=== PATIENT | male | born 1970 | race Caucasian/White ===

== ENCOUNTER 2016-09-13 08:37 | Inpatient (IN) | payer MEDICAID, OTHER ==
[2016-09-13 09:29] VITALS: BMI 38.0
--- NOTE | 2016-09-13 09:47 | ED PDOC ---
Arrival/HPI <Chaka Luis - Last Filed: 09/13/16 12:35> - General Historian: Patient - History of Present Illness Time/Duration: Other (3 days) Symptom Onset: Gradual Quality: Aching, Tightness Severity Level: 8 <Naomy Reyna - Last Filed: 09/13/16 18:55> - General Chief Complaint: Lower Extremity Problem/Injury Time Seen by Provider: 09/13/16 08:46 - History of Present Illness Narrative History of Present Illness (Text): 09/13/16 09:39 46yr old male with hx of chronic low back pain presents today with b/l posterior thigh pain that has been worsening over the past 3 days. pt states 3 days ago he fell down a flight of stairs and states he landed at the bottom on his back. pt states pain to the low back has been worsening and now the pain in the thigh has increased to the point where he is unable to hold his weight. pt denies bladder or bowel incontinence. denies numbness in the extremities. denies tingling. denies saddle parasthesias. denies fever/chills. denies urinary symptoms. no abdominal pain. pt eating and drinking well. no other complaints . (Naomy Reyna) Past Medical History - Provider Review Nursing Documentation Reviewed: Yes - Travel History Have you recently traveled outside [place] w/in the past 3 mons?: No - Endocrine/Metabolic Hx Diabetes Mellitus Type 2: Yes - Psychiatric Hx Substance Use: No <Naomy Reyna - Last Filed: 09/13/16 18:55> Family/Social History - Physician Review Nursing Documentation Reviewed: Yes Family/Social History: Unknown Family HX Smoking Status: Current Some Days Smoker Hx Alcohol Use: Yes Hx Substance Use: No <Naomy Reyna - Last Filed: 09/13/16 18:55> Allergies/Home Meds <Chaka Luis - Last Filed: 09/13/16 12:35> <Naomy Reyna - Last Filed: 09/13/16 18:55> Allergies/Adverse Reactions: Allergies No Known Allergies Allergy (Verified 09/13/16 09:49) Home Medications: Home Meds Medication Instructions Recorded Confirmed Aspirin [Adult Low Dose Aspirin EC] 09/13/16 Atorvastatin [Lipitor] 09/13/16 Enalapril Maleate [Vasotec] 09/13/16 Enalapril Maleate [Vasotec] 09/13/16 GlipiZIDE [Glucotrol] 09/13/16 Insulin Glargine,Hum.rec.anlog 32 units PO DAILY 09/13/16 09/13/16 [Lantus Solostar] MetFORMIN [glucoPHAGE] 1,000 mg PO DAILY 09/13/16 09/13/16 oxyCODONE [oxyCODONE Immediate 15 mg PO QID 09/13/16 09/13/16 Release Tab] Review of Systems - Review of Systems Constitutional: absent: Fatigue, Fevers Respiratory: absent: SOB, Cough Cardiovascular: absent: Chest Pain, Palpitations Gastrointestinal: absent: Abdominal Pain, Nausea, Vomiting Genitourinary Male: absent: Dysuria, Frequency, Hematuria, Urinary Output Changes Musculoskeletal: Arthralgias, Back Pain. absent: Neck Pain Skin: absent: Rash, Pruritis Neurological: absent: Headache, Dizziness Psychiatric: absent: Anxiety, Depression <Azoia,Naomy T - Last Filed: 09/13/16 18:55> Physical Exam Vital Signs Reviewed: Yes Temperature: Afebrile Blood Pressure: Normal Pulse: Regular Respiratory Rate: Normal Appearance: Positive for: Well-Appearing, Non-Toxic, Comfortable Pain Distress: None Mental Status: Positive for: Alert and Oriented X 3 - Systems Exam Head: Present: Atraumatic Mouth: Present: Moist Mucous Membranes Neck: Present: Normal Range of Motion Respiratory/Chest: Present: Clear to Auscultation, Good Air Exchange. No: Respiratory Distress, Accessory Muscle Use Cardiovascular: Present: Regular Rate and Rhythm, Normal S1, S2. No: Murmurs Abdomen: No: Tenderness, Distention, Peritoneal Signs, Rebound, Guarding Rectal: No: Occult Blood, Rectal Tenderness, Normal Rectal Tone (decreased rectal tone; tone present with bearing down.) Back: Present: Normal Inspection, Midline Tenderness (+ midline lumbar tenderness. no edema, no erythema; no ecchymosis; ), Paraspinal Tenderness Upper Extremity: Present: Normal Inspection, Normal ROM, Neurovascularly Intact Lower Extremity: Present: Normal Inspection, Normal ROM, Tenderness (+ ttp over posterior aspect of the thighs bilaterally; no edema, no erythema; no ecchymosis , sensation and distal pulses intact ), Neurovascularly Intact Neurological: Present: GCS=15, Speech Normal, Motor Func Grossly Intact (pt able to straight leg elevate both lower extremities. muscle strenght 5/5 equal bilaterally in lower extremity. ), Normal Sensory Function (sensation intact bilaterally; normal sensation to light touch bilaterally, normal sensation to pin prick bilaterally. ) Skin: Present: Warm, Dry Psychiatric: Present: Alert, Oriented x 3 <Naomy Reyna - Last Filed: 09/13/16 18:55> Vital Signs Temp Pulse Resp BP Pulse Ox 09/13/16 16:51 64 18 116/58 L 99 09/13/16 15:44 68 16 114/45 L 99 09/13/16 11:27 72 18 132/75 98 09/13/16 09:25 98.0 F 76 16 134/78 98 Medical Decision Making <Chaka Luis - Last Filed: 09/13/16 12:35> <Naomy Reyna - Last Filed: 09/13/16 18:55> ED Course and Treatment: 09/13/16 09:53 46yr old male with worsening leg pain and weakness s/p fall 3-4days ago. pt hx reviewed; pt takes oxycontin at home for chronic back pain. toradol and valium given. pt c/o weakness, although full rom of lower legs; will do MRI of LS spine as patient c/o weakness with midline low back pain s/p fall 3-4 days ago MRI lumbar spine; FINDINGS: Normal lumbar lordosis. There is a severe compression fracture of T12 with retropulsion of bone into the spinal canal. This compresses the proximal cauda equina. Findings are seen on axial image 4 series 8 and sagittal image 9. The retropulsed bone measures 9 mm anterior to posterior by 17 mm height by 25 mm with. There is marrow edema in the vertebral body consistent with an acute event. And underlying metastatic lesion cannot be excluded. Was there a history of recent trauma? Clinical correlation is suggested The remaining vertebral and disc levels are unremarkable OTHER FINDINGS: None. IMPRESSION: Severe compression fracture of T12 with retropulsion of bone into the spinal canal compressing the proximal cauda equina just below the tip of the conus. After MRI results; 10mg Decadron given IVP, call placed to neurosurgery. q1h neurochecks ordered. 09/13/16 11:[address] lofton; discussed case in depth regarding MRI findings of cauda equina; I discussed my physical findings of lack of rectal tone but good strength in lower legs bilaterally; He advised no intervention at this time; he advised close monitoring, frequent neuro checks; ; he would like thoracic MRI and thoracic CT. cbc wnl cmp wnl pt/ptt type and screen Cxr portable; wnl 09/13/16 12:[address] Daphne cristina; will get ICU consult. case discussed with dr. Cristina ICU physician. pt accepted to [facility] with [facility]. spoke with dr. pastrana; discussed the case of MRI findings of Cauda equina; he is going to discuss the case with dr. lofton. CT thoracic spine; FINDINGS: VERTEBRAE: There is a severe compression fracture of T12 with retropulsion of bone into the spinal canal producing severe encroachment upon the spinal canal and compression of the thecal sac and cauda equina. This is best seen on sagittal image 13 and axial image 101.. The remainder of the thoracic spine is unremarkable DISCS/SPINAL CANAL/NEURAL FORAMINA: Within the limits of the CT technique, no disc herniation seen. No central canal or neural foraminal stenosis.. PARASPINAL SOFT TISSUES: Unremarkable. OTHER FINDINGS: Unremarkable. IMPRESSION: There is a severe compression fracture of T12 with retropulsion of bone into the spinal canal producing severe encroachment upon the spinal canal and compression of the thecal sac and cauda equina. MRI thoracic spine; FINDINGS: ALIGNMENT: Normal thoracic spinal alignment. Normal thoracic kyphosis. VERTEBRA: There is a severe compression fracture of T12 with retropulsion of bone into the spinal canal compressing the proximal cauda equina. This was reported on the lumbar MRI from earlier today. There are no other vertebral compression fractures in the thoracic spine MARROW: Marrow edema in the T12 vertebral body consistent with acute compression fracture PARASPINAL SOFT TISSUES: Unremarkable. CORD: Unremarkable thoracic cord. No volume loss, signal abnormality or syrinx. DISCS: No disc herniation, spinal canal stenosis, or neuroforaminal narrowing. OTHER FINDINGS: None. IMPRESSION: There is a severe compression fracture of T12 with retropulsion of bone into the spinal canal compressing the proximal cauda equina. This was reported on the lumbar MRI from earlier today. There are no other vertebral compression fractures in the thoracic spine impression; thoracic compression fracture, cauda equina compression admit to ICU with neurosugery consult Pt reassessment; pt had the urge to urinate but was unable to; arnett catheter placed and 1100 cc of urine released; pt is still with strong muscle strength bilaterally; sensation intact in lower extremities. pt resting comfortably. 09/13/16 16:[address] Brown; discussed the case with him; advised him of my concern of possible urinary retention; He states he will touch base with dr. pastrana. 09/13/16 17:[address] pastrana (neurosugery) at bedside. (Naomy Reyna) - Lab Interpretations Lab Results: 09/13/16 11:35 09/13/16 11:35 Lab Results 09/13/16 15:09: Blood Type Confirm A NEGATIVE 09/13/16 11:35: WBC 11.3 H, RBC 3.80, Hgb 11.6 L, Hct 35.5 L, MCV 93.4, MCH 30.5 , MCHC 32.7, RDW 14.1, Plt Count 338, MPV 9.5, Gran % 56.7, Lymph % (Auto) 33.8 , Irwin % (Auto) 5.7, Eos % (Auto) 3.4, Baso % (Auto) 0.4, Gran # 6.42, Lymph # 3.8 H, Irwin # 0.6, Eos # 0.4, Baso # 0.04 09/13/16 11:35: Blood Type A NEGATIVE, Antibody Screen Negative, BBK History Checked No verified bt 09/13/16 11:35: Sodium 137, Potassium 3.6, Chloride 97 L, Carbon Dioxide 34 H, Anion Gap 10, BUN 15, Creatinine 0.6, Est GFR ( Amer) > 60, Est GFR (Non- Af Amer) > 60, Random Glucose 139 H, Calcium 8.8, Total Bilirubin 0.4, AST 33, ALT 36, Alkaline Phosphatase 101, Total Protein 6.8, Albumin 3.6, Globulin 3.2, Albumin/Globulin Ratio 1.1 09/13/16 11:35: PT 11.4, INR 1.06, APTT 28.7 - RAD Interpretation Radiology Orders: 09/13/16 09:49 SPINAL CANAL LUMBAR W/O CONT [MRI] Stat 09/13/16 11:33 CHEST PORTABLE [RAD] Stat 09/13/16 12:03 SPINAL CANAL THORACIC W/O CONT [MRI] Stat 09/13/16 12:05 THORACIC SPINE W/O CONT [CT] Stat - Medication Orders Current Medication Orders: Atorvastatin Calcium (Lipitor) 20 mg PO DAILY JOSIANE Dexamethasone (Decadron Inj) 4 mg IVP Q6H JOSIANE Last Admin: 09/13/16 17:10 Dose: 4 mg Enoxaparin Sodium (Lovenox) 40 mg SC DAILY JOSIANE PRN Reason: Protocol Last Admin: 09/13/16 15:44 Dose: 40 mg Sodium Chloride (Sodium Chloride 0.9%) 1,000 mls @ 125 mls/hr IV .Q8H JOSIANE Last Admin: 09/13/16 15:44 Dose: 125 mls/hr Insulin Human Lispro (Humalog Low) 0 units SC ACHS JOSIANE PRN Reason: Protocol Last Admin: 09/13/16 18:15 Dose: 1 units Ketorolac Tromethamine (Toradol) 60 mg IM Q8H PRN PRN Reason: moderate pain Stop: 09/18/16 14:28 Ondansetron HCl (Zofran Inj) 4 mg IVP Q6H PRN PRN Reason: Nausea/Vomiting Pantoprazole Sodium (Protonix Inj) 40 mg IVP DAILY JOSIANE Discontinued Medications Dexamethasone (Decadron Inj) 10 mg IVP STAT STA Stop: 09/13/16 11:27 Last Admin: 09/13/16 11:40 Dose: 10 mg Diazepam (Valium) 5 mg PO ONCE ONE Stop: 09/13/16 09:51 Last Admin: 09/13/16 10:03 Dose: 5 mg Glipizide (Glucotrol) 10 mg PO ACB JOSIANE Sodium Chloride (Sodium Chloride 0.9%) 1,000 mls @ 999 mls/hr IV .Q1H1M STA Stop: 09/13/16 13:08 Last Admin: 09/13/16 12:33 Dose: 999 mls/hr Insulin Human Regular (Humulin R Med) 0 units SC ACHS JOSIANE PRN Reason: Protocol Ketorolac Tromethamine (Toradol) 60 mg IM STAT STA Stop: 09/13/16 09:51 Last Admin: 09/13/16 10:03 Dose: 60 mg Re-Assess: WISAM Pain Assessment Document 09/13/16 11:03 HI (Rec: 09/13/16 15:45 HI [facility] [id number]) Pain Reassessment Is this a pain reassessment? Yes Sleep Is patient sleeping during reassessment? Yes - PA / REGULATORY COORDINATOR / Resident Statement MD/DO has reviewed & agrees with the documentation as recorded. MD/DO has examined the patient and agrees with the treatment plan. <Chaka Luis - Last Filed: 09/13/16 12:35> Disposition/Present on Arrival <Chkaa Luis - Last Filed: 09/13/16 12:35> - Present on Arrival Any Indicators Present on Arrival: Yes History of DVT/PE: No History of Uncontrolled Diabetes: Yes Urinary Catheter: No History of Decub. Ulcer: No History Surgical Site Infection Following: None - Disposition Have Diagnosis and Disposition been Completed?: Yes Disposition Time: 12:10 Patient Plan: Admission <Naomy Reyna - Last Filed: 09/13/16 18:55> - Disposition Diagnosis: Compression fracture, Cauda equina compression Disposition: HOSPITALIZED Patient Problems: Current Active Problems Problem Status Onset Cauda equina compression Acute Compression fracture Acute Condition: SERIOUS
--- NOTE | 2016-09-13 11:12 | MRI ---
PROCEDURE: MR LUMBAR SPINE WITHOUT CONTRAST HISTORY: back pain b/l leg weakness COMPARISON: None available. TECHNIQUE: Multiecho multiplanar sequences were performed through the lumbar spine without the use of intravenous contrast. FINDINGS: Normal lumbar lordosis. There is a severe compression fracture of T12 with retropulsion of bone into the spinal canal. This compresses the proximal cauda equina. Findings are seen on axial image 4 series 8 and sagittal image 9. The retropulsed bone measures 9 mm anterior to posterior by 17 mm height by 25 mm with. There is marrow edema in the vertebral body consistent with an acute event. And underlying metastatic lesion cannot be excluded. Was there a history of recent trauma? Clinical correlation is suggested The remaining vertebral and disc levels are unremarkable OTHER FINDINGS: None. IMPRESSION: Severe compression fracture of T12 with retropulsion of bone into the spinal canal compressing the proximal cauda equina just below the tip of the conus.
[2016-09-13 12:02] LABS: ADD MANUAL DIFF? NO
[2016-09-13] MEDS ORDERED: Sodium Chloride 0.9% 1,000 ML IV STA (12:08)
--- NOTE | 2016-09-13 12:16 | RAD ---
HISTORY: backpain COMPARISON: No prior. FINDINGS: LUNGS: No active pulmonary disease. PLEURA: No significant pleural effusion identified, no pneumothorax apparent. CARDIOVASCULAR: Normal. OSSEOUS STRUCTURES: No significant abnormalities. VISUALIZED UPPER ABDOMEN: Normal. OTHER FINDINGS: None. IMPRESSION: No active disease.
[2016-09-13 12:20] LABS: BLOOD UREA NITROGEN 15 mg/dL (7-21); CARBON DIOXIDE 34 mmol/L (21-33); CHLORIDE 97 mmol/L (98-107); GFR AFRICAN-AMERICAN > 60; GLUCOSE,RANDOM 139 mg/dL (70-110); POTASSIUM 3.6 mmol/L (3.6-5.0); SODIUM 137 mmol/L (132-148)
[2016-09-13 12:21] LABS: ALB/GLOB RATIO 1.1 (1.1-1.8); ALKALINE PHOSPHATASE 101 U/L (38-133); ALT/SGPT 36 U/L (7-56); AST/SGOT 33 U/L (15-59); BILIRUBIN,TOTAL 0.4 mg/dL (0.2-1.3); CALCIUM 8.8 mg/dL (8.4-10.5); TOTAL PROTEIN 6.8 g/dL (5.8-8.3)
[2016-09-13 12:28] LABS: BASO # 0.04 K/mm3 (0.0-2.0); BASO % 0.4 % (0.0-3.0); EOS # 0.4 (0.0-0.7); EOS % 3.4 % (1.5-5.0); GRAN # 6.42 (1.4-6.5); GRAN % 56.7 % (50.0-68.0); HEMATOCRIT 35.5 % (42.0-52.0); LYMPH # 3.8 (1.2-3.4); LYMPH % 33.8 % (22.0-35.0); MEAN CELL VOLUME 93.4 fL (80.0-105.0); MEAN CORPUSCULAR HEMOGLOBIN 30.5 pg (25.0-35.0); MEAN CORPUSCULAR HGB CONC 32.7 g/dl (31.0-37.0); MEAN PLATELET VOLUME 9.5 fl (7.0-11.0); MONO # 0.6 (0.1-0.6); MONO % 5.7 % (1.0-6.0); PLATELET COUNT 338 10^3/uL (120.0-450.0); RED CELL DISTRIBUTION WIDTH 14.1 % (11.5-14.5); WHITE BLOOD COUNT 11.3 10^3/ul (4.5-11.0)
[2016-09-13 12:33] LABS: INR 1.06 (0.93-1.08); PARTIAL THROMBOPLASTIN TIME 28.7 Seconds (23.7-30.8)
--- NOTE | 2016-09-13 14:09 | CT ---
PROCEDURE: CT Thoracic Spine without contrast HISTORY: fall COMPARISON: MRI of the lumbar spine performed on the same day TECHNIQUE: Axial computed tomography images were obtained of the thoracic spine without intravenous contrast. Coronal and sagittal reformatted images were created and reviewed. This CT exam was performed using one or more of the following dose reduction techniques: Automated exposure control, adjustment of the mA and/or kV according to patient size, and/or use of iterative reconstruction technique. FINDINGS: VERTEBRAE: There is a severe compression fracture of T12 with retropulsion of bone into the spinal canal producing severe encroachment upon the spinal canal and compression of the thecal sac and cauda equina. This is best seen on sagittal image 13 and axial image 101.. The remainder of the thoracic spine is unremarkable DISCS/SPINAL CANAL/NEURAL FORAMINA: Within the limits of the CT technique, no disc herniation seen. No central canal or neural foraminal stenosis.. PARASPINAL SOFT TISSUES: Unremarkable. OTHER FINDINGS: Unremarkable. IMPRESSION: There is a severe compression fracture of T12 with retropulsion of bone into the spinal canal producing severe encroachment upon the spinal canal and compression of the thecal sac and cauda equina.
[2016-09-13] MEDS ORDERED: Enoxaparin 40 mg Syringe SC SCH (14:30)
--- NOTE | 2016-09-13 15:36 | CP.PCM.CON ---
<Patricia Sanchez - Last Filed: 09/13/16 16:25> History of Present Illness - History of Present Illness History of Present Illness: This is a 46Y M with PMH of DM, HTN, HLD and substance abuse who came to ED for back pain x 4 days. Patient reports he was standing at the top of the stairs and slipped and fell backwards. He has been back pain every since. He says it is worse with standing and sitting, anything that increased pressure on the region. He denies numbness/tingling, weakness, loss of bowel or bladder function. The patient did admit to using heroin yesterday as well as smoking cocaine last night. Patient noted to be lethargic and falling asleep during interview. PMH: DM, HTN, HLD and substance abuse PSH: denies Home meds: ASA, Lipitor, Metformin, Glipizide, Enalipril, Oxycodone 15mg All: NKDA SH: denies alcohol use, smoker, + for cocaine and heroin use FH: DM Review of Systems - Constitutional Constitutional: absent: Chills, Fever - EENT Eyes: absent: Change in Vision Nose/Mouth/Throat: absent: Dysphagia, Sore Throat - Cardiovascular Cardiovascular: absent: Chest Pain, Diaphoresis, Dyspnea, Edema, Palpitations - Respiratory Respiratory: absent: Cough, Dyspnea - Gastrointestinal Gastrointestinal: absent: Abdominal Pain, Change in Bowel Habits, Nausea, Vomiting - Genitourinary Genitourinary: absent: Change in Urinary Stream, Dysuria, Hematuria, Pyuria, Urinary Incontinence, Urinary Hesitance, Urinary Urgency - Musculoskeletal Musculoskeletal: Back Pain. absent: Arthralgias, Numbness, Tingling - Integumentary Integumentary: absent: Change in Hair, Change in Pigmentation, Changing Lesions - Neurological Neurological: absent: Abnormal Movements, Confusion, Dizziness, Numbness, Paresthesias, Sensory Deficit, Tremor, Vertigo, Weakness - Psychiatric Psychiatric: absent: Anxiety, Depression Past Patient History - Past Social History Smoking Status: Current Some Days Smoker - CARDIAC Hx Hypercholesterolemia: Yes - ENDOCRINE/METABOLIC Hx Diabetes Mellitus Type 2: Yes - PSYCHIATRIC Hx Substance Use: No Meds Allergies/Adverse Reactions: Allergies Allergy/AdvReac Type Severity Reaction Status Date / Time No Known Allergies Allergy Verified 09/13/16 09:49 - Medications Medications: Current Medications Atorvastatin Calcium (Lipitor) 20 mg PO DAILY [facility] Enoxaparin Sodium (Lovenox) 40 mg SC DAILY [facility] PRN Reason: Protocol Sodium Chloride (Sodium Chloride 0.9%) 1,000 mls @ 125 mls/hr IV .Q8H [facility] Insulin Human Lispro (Humalog Low) 0 units SC ACHS JOSIANE PRN Reason: Protocol Ketorolac Tromethamine (Toradol) 60 mg IM Q8H PRN PRN Reason: moderate pain Stop: 09/18/16 14:28 Ondansetron HCl (Zofran Inj) 4 mg IVP Q6H PRN PRN Reason: Nausea/Vomiting Pantoprazole Sodium (Protonix Inj) 40 mg IVP DAILY [facility] Physical Exam - Constitutional Appears: No Acute Distress - Head Exam Head Exam: ATRAUMATIC, NORMAL INSPECTION, NORMOCEPHALIC - Eye Exam Eye Exam: Normal appearance, PERRL Pupil Exam: Mydriatic, NORMAL ACCOMODATION, PERRL - ENT Exam ENT Exam: Mucous Membranes Moist - Neck Exam Neck exam: Positive for: Normal Inspection - Respiratory Exam Respiratory Exam: Clear to Auscultation Bilateral, NORMAL BREATHING PATTERN. absent: Rales, Rhonchi, Wheezes - Cardiovascular Exam Cardiovascular Exam: REGULAR RHYTHM, +S1, +S2. absent: Tachycardia, Gallop, Rubs - GI/Abdominal Exam GI & Abdominal Exam: Normal Bowel Sounds, Soft. absent: Mass, Rebound, Rigid, Tenderness - Rectal Exam Additional comments: rectal exam in ED noted to have normal tone and sensation. - Extremities Exam Extremities exam: Positive for: normal inspection. Negative for: pedal edema - Back Exam Back exam: NORMAL INSPECTION, vertebral tenderness (low thoracic ) - Neurological Exam Neurological exam: Alert, CN II-XII Intact, Oriented x3 - Expanded Neurological Exam Expanded Patient oriented to: person, place, time Upper motor neuron: Babinski Sign: Normal Sensory exam: Lower Extremity 2 Point Discrimination: Normal, Lower Extremity Light Touch: Normal, Lower Extremity Pin Prick: Normal, Lower Extremity Temperature: Normal, Upper Extremity 2 Point Discrimination: Normal, Upper Extremity Light Touch: Normal, Upper Extremity Pin Prick: Normal, Upper Extremity Temperature: Normal Neuro motor strength exam: Left Upper Extremity: 5, Right Upper Extremity: 5, Left Lower Extremity: 5, Right Lower Extremity: 5 Coma Scale Eye Opening: SPONTANEOUS Coma Scale Motor Response: OBEYS COMMANDS Coma Scale Verbal: Oriented Coma Scale Total: 15 - Psychiatric Exam Psychiatric exam: Normal Affect, Normal Mood - Skin Skin Exam: Dry, Intact, Normal Color, Warm Results - Vital Signs Recent Vital Signs: Last Vital Signs Temp 98.0 F 09/13/16 09:25 Pulse 72 09/13/16 11:27 Resp 18 09/13/16 11:27 BP 132/75 09/13/16 11:27 Pulse Ox 98 09/13/16 11:27 - Labs Result Diagrams: 09/13/16 11:35 09/13/16 11:35 Labs: Laboratory Results - last 24 hr 09/13/16 09/13/16 09/13/16 11:35 11:35 11:35 WBC RBC Hgb Hct MCV MCH MCHC RDW Plt Count MPV Gran % Lymph % (Auto) [place] % (Auto) Eos % (Auto) Baso % (Auto) Gran # Lymph # Greenlee # Eos # Baso # PT 11.4 INR 1.06 APTT 28.7 Sodium 137 Potassium 3.6 Chloride 97 L Carbon Dioxide 34 H Anion Gap 10 BUN 15 Creatinine 0.6 Est GFR ( Amer) > 60 Est GFR (Non-Af Amer) > 60 Random Glucose 139 H Calcium 8.8 Total Bilirubin 0.4 AST 33 ALT 36 Alkaline Phosphatase 101 Total Protein 6.8 Albumin 3.6 Globulin 3.2 Albumin/Globulin Ratio 1.1 Blood Type A NEGATIVE Antibody Screen Negative BBK History Checked No verified bt 09/13/16 11:35 WBC 11.3 H RBC 3.80 Hgb 11.6 L Hct 35.5 L MCV 93.4 MCH 30.5 MCHC 32.7 RDW 14.1 Plt Count 338 MPV 9.5 Gran % 56.7 Lymph % (Auto) 33.8 [place]lee % (Auto) 5.7 Eos % (Auto) 3.4 Baso % (Auto) 0.4 Gran # 6.42 Lymph # 3.8 H Greenlee # 0.6 Eos # 0.4 Baso # 0.04 PT INR APTT Sodium Potassium Chloride Carbon Dioxide Anion Gap BUN Creatinine Est GFR ( Amer) Est GFR (Non-Af Amer) Random Glucose Calcium Total Bilirubin AST ALT Alkaline Phosphatase Total Protein Albumin Globulin Albumin/Globulin Ratio Blood Type Antibody Screen BBK History Checked Assessment & Plan - Assessment and Plan (Free Text) Assessment: This is a 46Y M with PMH of DM, HTN, HLD and substance abuse noted to have T12 compression with retropulsion of bone into spinal canal compression. Plan: Neuro: A&O x 3 Neurocheck q1h Neurosurgery consulted No neuro defecits seen at this time CT and MRI showed T12 compression fracture with spinal canal compression Substance abuse-heroin and cocaine UDS pending Decadron 4mg q6h Monitor for withdrawal CV: Hemodynamically stable Maintain MAP >65 Resp: Comfortable on room air Maintain spO2>90% GI: No symptoms at this time Zofran prn nausea Continue to monitor Renal: Continue to monitor CMP- will replace electrolytes as needed Ck mildly elevated NS@125 Heme: Hemoglobin stable Continue to monitor CBC ID: Afebrile, mild leukocytosis blood and urine culture pending HIV pending U/A and PCT pending Endo: BGM ACHS ISS Maintain euglycemia Psych: history of substance abuse Monitor for withdrawal GI ppx: Protonix DVT ppx: Lovenox Case seen, discussed and reviewed with attending. Janice Sanchez PGY1 - Date & Time Date: 09/13/16 Time: 16:14 <Eric NIÑO,Mario Elizalde - Last Filed: 09/13/16 17:24> Meds - Medications Medications: Current Medications Atorvastatin Calcium (Lipitor) 20 mg PO DAILY [facility] Dexamethasone (Decadron Inj) 4 mg IVP Q6H [facility] Last Admin: 09/13/16 17:10 Dose: 4 mg Enoxaparin Sodium (Lovenox) 40 mg SC DAILY [facility] PRN Reason: Protocol Last Admin: 09/13/16 15:44 Dose: 40 mg Sodium Chloride (Sodium Chloride 0.9%) 1,000 mls @ 125 mls/hr IV .Q8H [facility] Last Admin: 09/13/16 15:44 Dose: 125 mls/hr Insulin Human Lispro (Humalog Low) 0 units SC ACHS JOSIANE PRN Reason: Protocol Ketorolac Tromethamine (Toradol) 60 mg IM Q8H PRN PRN Reason: moderate pain Stop: 09/18/16 14:28 Ondansetron HCl (Zofran Inj) 4 mg IVP Q6H PRN PRN Reason: Nausea/Vomiting Pantoprazole Sodium (Protonix Inj) 40 mg IVP DAILY JOSIANE Results - Vital Signs Recent Vital Signs: Last Vital Signs Temp 98.0 F 09/13/16 09:25 Pulse 64 09/13/16 16:51 Resp 18 09/13/16 16:51 BP 116/58 L 09/13/16 16:51 Pulse Ox 99 09/13/16 16:51 - Labs Result Diagrams: 09/13/16 11:35 09/13/16 11:35 Labs: Laboratory Results - last 24 hr 09/13/16 09/13/16 15:35 16:27 Total Creatine Kinase 332 H CK-MB (CK-2) 10.5 H CK-MB (CK-2) % 3.2 H Urine Color Yellow Urine Appearance Clear Urine pH 7.0 Ur Specific [place] 1.015 Urine Protein Negative Urine Glucose (UA) Negative Urine Ketones Negative Urine Blood Negative Urine Nitrate Negative Urine Bilirubin Negative Urine Urobilinogen 1.0 H Ur Leukocyte Esterase Negative Attending/Attestation - Attestation I have personally seen and examined this patient.: Yes I have fully participated in the care of the patient.: Yes I have reviewed all pertinent clinical information: Yes Notes (Text): 09/13/16 17:22 46 y/o M s/p Trauma after fall downstairs Presented w/ Acute back pain x 4 days. Found to have t12 disk protrusion in to spinal canal w/ moderate cord impingement. Does have poor rectal tone, and difficulty urinating and standing/ bearing weight. ER staff and ICU staff spoke to neurosurgery to alert them of the findings, plan to continue decadron overnight and decompress in the a.m. Neurochecks q 1hrs. Blood cx. Watch for withdrawl from polysubstance abuse. heroin, cocaine. etc dvt p heparin sq cc time 65 min
[2016-09-13] MEDS: Sodium Chloride 0.9% 1,000 ML IV SCH (15:44)
--- NOTE | 2016-09-13 15:45 | MRI ---
PROCEDURE: MR THORACIC SPINE WITHOUT CONTRAST HISTORY: fall COMPARISON: MRI of the lumbar spine earlier same day TECHNIQUE: Multiecho multiplanar sequences were performed through the thoracic spine without the use of intravenous contrast. FINDINGS: ALIGNMENT: Normal thoracic spinal alignment. Normal thoracic kyphosis. VERTEBRA: There is a severe compression fracture of T12 with retropulsion of bone into the spinal canal compressing the proximal cauda equina. This was reported on the lumbar MRI from earlier today. There are no other vertebral compression fractures in the thoracic spine MARROW: Marrow edema in the T12 vertebral body consistent with acute compression fracture PARASPINAL SOFT TISSUES: Unremarkable. CORD: Unremarkable thoracic cord. No volume loss, signal abnormality or syrinx. DISCS: No disc herniation, spinal canal stenosis, or neuroforaminal narrowing. OTHER FINDINGS: None. IMPRESSION: There is a severe compression fracture of T12 with retropulsion of bone into the spinal canal compressing the proximal cauda equina. This was reported on the lumbar MRI from earlier today. There are no other vertebral compression fractures in the thoracic spine
[2016-09-13] MEDS ORDERED: Insulin Reg-MEDIUM-Coverage SC SCH (16:30)
--- NOTE | 2016-09-13 16:37 | CP.PCM.HP ---
<Ian Chan - Last Filed: 09/13/16 16:26> History of Present Illness - History of Present Illness History of Present Illness: This is a 46 y/o male with hx of DM and apparent substance abuse. The patient presents with complaints of bilateral lower extremity weakness and pain as well as lower back discomfort. The patient states that 3 days ago he fell while walking down stairs. He reports falling to the floor on his sacrum. He states he was sore after this event but was not experiencing weakness. Over the past few days his pain progress and the patient developed b/l lower extremity weakness. As of today the patient notes he is unable to stand or walk for prolonged periods due to his "legs giving out". MRI in the ED reveals T12 fracture with compression of the cauda equina. Neurosurgery was contacted who recommend conservative therapy for now as well as additional imaging of the spine. The patient denies loss of bowel or bladder dysfunction. He denies saddle anesthesia or any sensory deficits. On evaluation the patient was found to be lethargic requiring repeated prompting to answer questions. He admits to usin Oxycontin which is prescribed to him for reasons that are not clear. He further admits to Heroin use but denies IV administration. In addition he admits to smoking cocaine prior to arrival. PMH: IDDM, polysubstance abuse PSH: denies FHX; noncontributory Social history: Unemployed. Apparent unstable living situation. Substance abuse as described above. Denies alcohol use. Reports 1ppd x >10 years cigarette use. Allergies: NKDA Present on Admission - Present on Admission Any Indicators Present on Admission: No Review of Systems - Constitutional Constitutional: absent: Chills, Fever - EENT Eyes: absent: Blurred Vision, Change in Vision Nose/Mouth/Throat: absent: Nasal Congestion, Nasal Discharge, Sore Throat - Cardiovascular Cardiovascular: absent: Chest Pain, Dyspnea, Palpitations, Syncope - Respiratory Respiratory: absent: Cough, Dyspnea - Gastrointestinal Gastrointestinal: absent: Abdominal Pain, Diarrhea, Nausea, Vomiting - Genitourinary Genitourinary: absent: Dysuria, Hematuria - Musculoskeletal Musculoskeletal: Back Pain, Muscle Weakness. absent: Neck Pain - Neurological Neurological: Radicular Pain, Weakness. absent: Dizziness, Numbness, Focal Weakness, Headaches, Syncope - Psychiatric Psychiatric: absent: Anxiety, Depression - Endocrine Endocrine: absent: Fatigue, Palpitations Past Patient History - Past Social History Smoking Status: Current Some Days Smoker - CARDIAC Hx Hypercholesterolemia: Yes - ENDOCRINE/METABOLIC Hx Diabetes Mellitus Type 2: Yes - PSYCHIATRIC Hx Substance Use: No Meds Allergies/Adverse Reactions: Allergies Allergy/AdvReac Type Severity Reaction Status Date / Time No Known Allergies Allergy Verified 09/13/16 09:49 Physical Exam - Constitutional Appears: Non-toxic - Head Exam Head Exam: ATRAUMATIC, NORMOCEPHALIC - Eye Exam Eye Exam: EOMI, Normal appearance. absent: PERRL (constricted ) - ENT Exam ENT Exam: Mucous Membranes Moist - Neck Exam Neck exam: Positive for: Full Rom, Normal Inspection - Respiratory Exam Respiratory Exam: Clear to Auscultation Bilateral. absent: Rales, Rhonchi, Wheezes - Cardiovascular Exam Cardiovascular Exam: REGULAR RHYTHM, +S1, +S2 - GI/Abdominal Exam GI & Abdominal Exam: Normal Bowel Sounds, Soft. absent: Distended - Extremities Exam Extremities exam: Positive for: full ROM, normal inspection, pedal pulses present. Negative for: calf tenderness, pedal edema - Neurological Exam Neurological exam: Alert, Oriented x3 Additional comments: no focal deficits. normal sensory exam to b/l lower extremities and inguinal area. 5/5 muscle strength to all extremities. - Psychiatric Exam Psychiatric exam: Normal Affect, Normal Mood - Skin Skin Exam: Normal Color, Warm Results - Vital Signs Recent Vital Signs: Last Vital Signs Temp 98.0 F 09/13/16 09:25 Pulse 68 09/13/16 15:44 Resp 16 09/13/16 15:44 BP 114/45 L 09/13/16 15:44 Pulse Ox 99 09/13/16 15:44 - Labs Result Diagrams: 09/13/16 11:35 09/13/16 11:35 Labs: Laboratory Results - last 24 hr 09/13/16 15:35 Total Creatine Kinase 332 H CK-MB (CK-2) 10.5 H CK-MB (CK-2) % 3.2 H Assessment & Plan - Assessment and Plan (Free Text) Assessment: 46 y/o male with hx IDDM presenting s/p fall with a fracture to T12 vertebrae and compression of cauda equina. Patient is not experiencing saddle anesthesia, bowel or bladder incontinence. Neurosurgery is aware of the case and recommends non-surgical treatment at this time with further imaging of the spine. T12 fracture w/ cauda equina compression - neurochecks q4h - Toradol for pain - neurosurgery following - CT and MRI thoracic spine pending Hx substance abuse - urine tox - rapid HIV due to possible IVDA DM - SSI - low - holding home PO meds while inpatient - diabetic diet - fingerstick ACHS PPX - lovenox 40mg daily - Protonix 40mg daily <Daphne Reyes B - Last Filed: 09/15/16 18:12> Results - Vital Signs Recent Vital Signs: Last Vital Signs Temp 98.7 F 09/15/16 17:31 Pulse 65 09/15/16 17:20 Resp 14 09/15/16 17:20 BP 109/52 L 09/15/16 14:54 Pulse Ox 100 09/15/16 14:00 - Labs Result Diagrams: 09/15/16 06:45 09/15/16 06:45 Labs: Laboratory Results - last 24 hr 09/13/16 09/14/16 09/14/16 17:02 07:51 11:18 WBC RBC Hgb Hct MCV MCH MCHC RDW Plt Count MPV Sodium Potassium Chloride Carbon Dioxide Anion Gap BUN Creatinine Est GFR ( Amer) Est GFR (Non-Af Amer) POC Glucose (mg/dL) 177 H 164 H 168 H Random Glucose Calcium Total Bilirubin AST ALT Alkaline Phosphatase Total Protein Albumin Globulin Albumin/Globulin Ratio Procalcitonin 09/14/16 09/15/16 09/15/16 22:45 06:30 06:45 WBC 12.3 H RBC 3.66 Hgb 10.9 L Hct 33.7 L MCV 92.1 MCH 29.8 MCHC 32.3 RDW 14.0 Plt Count 241 MPV 10.0 Sodium Potassium Chloride Carbon Dioxide Anion Gap BUN Creatinine Est GFR ( Amer) Est GFR (Non-Af Amer) POC Glucose (mg/dL) 236 H Random Glucose Calcium Total Bilirubin AST ALT Alkaline Phosphatase Total Protein Albumin Globulin Albumin/Globulin Ratio Procalcitonin 0.06 L 09/15/16 06:45 WBC RBC Hgb Hct MCV MCH MCHC RDW Plt Count MPV Sodium 139 Potassium 3.7 Chloride 107 Carbon Dioxide 25 Anion Gap 11 BUN 20 Creatinine 0.6 Est GFR ( Amer) > 60 Est GFR (Non-Af Amer) > 60 POC Glucose (mg/dL) Random Glucose 171 H Calcium 7.8 L Total Bilirubin 0.6 AST 63 H ALT 45 Alkaline Phosphatase 100 Total Protein 5.4 L Albumin 2.8 L Globulin 2.6 Albumin/Globulin Ratio 1.1 Procalcitonin Attending/Attestation - Attestation I have personally seen and examined this patient.: Yes I have fully participated in the care of the patient.: Yes I have reviewed all pertinent clinical information: Yes Notes (Text): I have seen and examined patient at bedside. Agree with the above note with the following additions/ exceptions: Briefly this is 46 year old male with history of IDDM, tobacco use, substance abuse, opioid use who got admitted for evaluation for lower back pain and lower extremity weakness secondary to fall. MRI revealed T12 fracture with compression of the cauda equina. Neurosurgery recommended additional imaging of the spine. The patient denies loss of bowel or bladder incontinence, saddle anesthesia, sexual dysfunction or any sensory deficits however there is a decrease rectal tone. Patient will be admitted to ICU. Will check ESR, CRP and cultures. Will give decadron. Will do frequent neurochecks. Upon discharge will follow up with PMD of choice. Dr Daphne Reyes
[2016-09-13 16:45] LABS: URINE BILIRUBIN NEGATIVE (NEGATIVE); URINE BLOOD NEGATIVE (NEGATIVE); URINE GLUCOSE (UA) NEGATIVE (NEGATIVE); URINE KETONE NEGATIVE (NEGATIVE); URINE LEUKOCYTE ESTERASE NEGATIVE Leu/uL (NEGATIVE); URINE PROTEIN NEGATIVE mg/dL (<30 mg/dL)
[2016-09-13 16:48] LABS: URINE APPEARANCE CLEAR (CLEAR); URINE COLOR YELLOW (YELLOW)
[2016-09-13] MEDS: Dexamethasone 4 mg/1 ml IVP SCH ×2 (17:10→22:40)
[2016-09-13] MEDS: Insulin Lispro (humaLOG) LOW Coverage SC SCH ×2 (18:15→22:02)
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
[2016-09-14] MEDS ORDERED: Morphine 2 mg/ml ISec IVP ONE (02:36)
[2016-09-14] MEDS: Sodium Chloride 0.9% 1,000 ML IV SCH ×3 (02:48→15:57)
[2016-09-14] MEDS: Dexamethasone 4 mg/1 ml IVP SCH ×4 (05:14→21:32)
[2016-09-14] MEDS: Insulin Lispro (humaLOG) LOW Coverage SC SCH ×4 (08:30→22:00)
--- NOTE | 2016-09-14 08:57 | CP.PCM.PN ---
<RocioIan - Last Filed: 09/14/16 14:24> Subjective - Date & Time of Evaluation Date of Evaluation: 09/14/16 Time of Evaluation: 08:50 - Subjective Subjective: Patient seen at bedside. Neurologic status is unchanged. He has not experienced loss of bowel or bladder function. Patient was seen by neurosurgery and will undergo internal fixation likely today. Objective - Vital Signs/Intake and Output Vital Signs (last 24 hours): Temp Pulse Resp BP Pulse Ox 98.1 F 70 27 H 141/84 96 09/14/16 04:00 09/14/16 07:50 09/14/16 07:50 09/14/16 07:00 09/14/16 07:50 Intake and Output: 09/14/16 09/14/16 06:59 18:59 Intake Total 1500 Output Total 850 Balance 650 - Medications Medications: Current Medications Atorvastatin Calcium (Lipitor) 20 mg PO DAILY [facility] Dexamethasone (Decadron Inj) 4 mg IVP Q6H [facility] Last Admin: 09/14/16 05:14 Dose: 4 mg Enoxaparin Sodium (Lovenox) 40 mg SC DAILY [facility] PRN Reason: Protocol Last Admin: 09/13/16 15:44 Dose: 40 mg Sodium Chloride (Sodium Chloride 0.9%) 1,000 mls @ 125 mls/hr IV .Q8H [facility] Last Admin: 09/14/16 02:48 Dose: 125 mls/hr Insulin Human Lispro (Humalog Low) 0 units SC ACHS [facility] PRN Reason: Protocol Last Admin: 09/14/16 08:30 Dose: Not Given Ketorolac Tromethamine (Toradol) 60 mg IM Q8H PRN PRN Reason: moderate pain Stop: 09/18/16 14:28 Last Admin: 09/14/16 05:17 Dose: 60 mg Ondansetron HCl (Zofran Inj) 4 mg IVP Q6H PRN PRN Reason: Nausea/Vomiting Pantoprazole Sodium (Protonix Inj) 40 mg IVP DAILY [facility] - Labs Labs: PT 11.4 Seconds (9.9-11.8) 09/13/16 11:35 INR 1.06 (0.93-1.08) 09/13/16 11:35 APTT 28.7 Seconds (23.7-30.8) 09/13/16 11:35 - Constitutional Appears: Non-toxic, No Acute Distress - Head Exam Head Exam: ATRAUMATIC, NORMOCEPHALIC - Eye Exam Eye Exam: EOMI, PERRL - ENT Exam ENT Exam: Mucous Membranes Moist - Neck Exam Neck Exam: Full ROM, Normal Inspection - Respiratory Exam Respiratory Exam: Clear to Ausculation Bilateral. absent: Rales, Rhonchi, Wheezes - Cardiovascular Exam Cardiovascular Exam: REGULAR RHYTHM, +S1, +S2 - GI/Abdominal Exam GI & Abdominal Exam: Soft. absent: Tenderness, Normal Bowel Sounds - Extremities Exam Extremities Exam: Full ROM, Normal Inspection. absent: Calf Tenderness, Pedal Edema - Neurological Exam Neurological Exam: Alert, Oriented x3 Assessment and Plan - Assessment and Plan (Free Text) Assessment: 46 y/o male with hx IDDM presenting s/p fall with a fracture to T12 vertebrae and compression of cauda equina. Patient is not experiencing saddle anesthesia, bowel or bladder incontinence. Neurosurgery evaluated patient who will take the patient for internal fixation likely today. T12 fracture w/ cauda equina compression - neurochecks q4h - Toradol for pain - scheduled for internal fixation likely today - will require abx ppx Hx substance abuse - urine tox - rapid HIV due to possible IVDA DM - SSI - low - holding home PO meds while inpatient - diabetic diet - fingerstick ACHS PPX - lovenox 40mg daily - Protonix 40mg daily <Daphne Reyes - Last Filed: 09/17/16 17:14> Objective - Vital Signs/Intake and Output Vital Signs (last 24 hours): Temp Pulse Resp BP Pulse Ox 97 F L 74 20 125/81 98 09/17/16 16:00 09/17/16 16:00 09/17/16 16:00 09/17/16 16:00 09/17/16 16:00 Intake and Output: 09/17/16 09/17/16 06:59 18:59 Intake Total 5746 960 Output Total 4200 3050 Balance 1546 -2090 - Medications Medications: Current Medications Atorvastatin Calcium (Lipitor) 20 mg PO DAILY [facility] Last Admin: 09/17/16 11:57 Dose: 20 mg Bacitracin (Bacitracin) 0 gm TOP DAILY [facility] Last Admin: 09/17/16 15:39 Dose: 1 applic Dexamethasone (Decadron Inj) 4 mg IVP Q8 [facility] Last Admin: 09/17/16 15:40 Dose: 4 mg Docusate Sodium (Colace) 100 mg PO BID [facility] Last Admin: 09/17/16 11:04 Dose: Not Given Enoxaparin Sodium (Lovenox) 40 mg SC DAILY [facility] PRN Reason: Protocol Last Admin: 09/13/16 15:44 Dose: 40 mg Hydromorphone HCl (Dilaudid) 0.5 mg IVP Q15M PRN PRN Reason: Pain, moderate (4-7) Sodium Chloride (Sodium Chloride 0.9%) 1,000 mls @ 125 mls/hr IV .Q8H [facility] Last Admin: 09/17/16 15:20 Dose: 125 mls/hr Hydromorphone HCl (Dilaudid 0.2 Mg/Ml Multiple Spindle Router Operator) 25 mls @ 0 mls/hr IV .Q0M PRN PRN Reason: PER MD ORDER Stop: 09/17/16 20:02 Last Admin: 09/17/16 12:00 Dose: 1 mls/hr Insulin Human Lispro (Humalog Med) 0 units SC [facility] PRN Reason: Protocol Last Admin: 09/17/16 16:10 Dose: 5 units Ketorolac Tromethamine (Toradol) 30 mg IVP Q8H PRN PRN Reason: Pain, moderate (4-7) Last Admin: 09/16/16 20:23 Dose: 30 mg Morphine Sulfate (Morphine) 2 mg IVP Q4H PRN PRN Reason: Pain, severe (8-10) Last Admin: 09/14/16 09:56 Dose: 2 mg Ondansetron HCl (Zofran Inj) 4 mg IVP Q6H PRN PRN Reason: Nausea/Vomiting Pantoprazole Sodium (Protonix Inj) 40 mg IVP DAILY [facility] Last Admin: 09/17/16 11:55 Dose: 40 mg Simethicone (Mylicon Chew Tab) [address] [facility] PRN PRN Reason: GI distress - Labs Labs: 09/17/16 07:28 09/17/16 07:28 PT 12.4 Seconds (9.9-11.8) H 09/14/16 08:00 INR 1.15 (0.93-1.08) H 09/14/16 08:00 APTT 27.6 Seconds (23.7-30.8) 09/14/16 08:00 Attending/Attestation - Attestation I have personally seen and examined this patient.: Yes I have fully participated in the care of the patient.: Yes I have reviewed all pertinent clinical information, including history, physical exam and plan: Yes Notes (Text): I have seen and examined patient at bedside. Agree with the above note with the following additions/ exceptions: Briefly this is 46 year old male with history of IDDM, tobacco use, substance abuse, opioid use who got admitted for evaluation for lower back pain and lower extremity weakness secondary to fall. MRI revealed T12 fracture with compression of the cauda equina. The patient denies loss of bowel or bladder incontinence, saddle anesthesia, sexual dysfunction or any sensory deficits however there is a decrease rectal tone. ESR , CRP elevated. Procal pending. Will continue decadron. Patient is scheduled for spinal fusion today. Will do frequent neurochecks. UDS showed methadone, opiates, cocaine and BZ. Counselling provided regarding substance abuse. Will check HIV. Will start ISS. Upon discharge will follow up with PMD of choice. Dr Daphne Reyes
[2016-09-14 09:39] LABS: ADD MANUAL DIFF? NO
[2016-09-14] MEDS: Vancomycin 1gm in NS 250ml 1 GM/250 ML BAG IVPB SCH ×2 (09:39→21:14)
[2016-09-14 09:41] LABS: BASO # 0.01 K/mm3 (0.0-2.0); BASO % 0.1 % (0.0-3.0); GRAN # 8.82 (1.4-6.5); HEMATOCRIT 37.6 % (42.0-52.0); LYMPH # 1.5 (1.2-3.4); MEAN CELL VOLUME 90.4 fL (80.0-105.0); MEAN CORPUSCULAR HGB CONC 33.2 g/dl (31.0-37.0); MEAN PLATELET VOLUME 9.5 fl (7.0-11.0); MONO # 0.3 (0.1-0.6); MONO % 2.9 % (1.0-6.0); PLATELET COUNT 341 10^3/uL (120.0-450.0); RED CELL DISTRIBUTION WIDTH 13.6 % (11.5-14.5); WHITE BLOOD COUNT 10.6 10^3/ul (4.5-11.0)
[2016-09-14 09:52] LABS: ALB/GLOB RATIO 1.1 (1.1-1.8); ALKALINE PHOSPHATASE 112 U/L (38-133); ALT/SGPT 34 U/L (7-56); AST/SGOT 22 U/L (15-59); BILIRUBIN,TOTAL 0.6 mg/dL (0.2-1.3); BLOOD UREA NITROGEN 19 mg/dL (7-21); CALCIUM 8.6 mg/dL (8.4-10.5); CARBON DIOXIDE 26 mmol/L (21-33); CHLORIDE 106 mmol/L (95-110); GFR AFRICAN-AMERICAN > 60; GLUCOSE,RANDOM 172 mg/dL (70-110); INR 1.15 (0.93-1.08); PARTIAL THROMBOPLASTIN TIME 27.6 Seconds (23.7-30.8); POTASSIUM 4.2 mmol/L (3.6-5.0); SODIUM 138 mmol/L (132-148); TOTAL PROTEIN 6.3 g/dL (5.8-8.3)
[2016-09-14] MEDS: Morphine 2 mg/ml ISec IVP PRN (09:56)
--- NOTE | 2016-09-14 10:44 | CP.PCM.PN ---
<Patricia Sanchez - Last Filed: 09/14/16 14:45> Subjective - Date & Time of Evaluation Date of Evaluation: 09/14/16 Time of Evaluation: 10:33 - Subjective Subjective: ICU Progress Note Patient seen and examined at bedside. There were no acute overnight events. Patient says that he is having back pain. He is also complaining of numbness/ tingling in his 4th/5th fingers bilaterally. He denies any other numbness/ tingling, weakness, fever, chills, loss of bowel function. Objective - Vital Signs/Intake and Output Vital Signs (last 24 hours): Temp Pulse Resp BP Pulse Ox 98.1 F 70 27 H 141/84 96 09/14/16 04:00 09/14/16 07:50 09/14/16 07:50 09/14/16 07:00 09/14/16 07:50 Intake and Output: 09/14/16 09/14/16 06:59 18:59 Intake Total 1500 Output Total 850 Balance 650 - Medications Medications: Current Medications Atorvastatin Calcium (Lipitor) 20 mg PO DAILY [facility] Last Admin: 09/14/16 09:21 Dose: Not Given Dexamethasone (Decadron Inj) 4 mg IVP Q6H [facility] Last Admin: 09/14/16 09:37 Dose: 4 mg Enoxaparin Sodium (Lovenox) 40 mg SC DAILY [facility] PRN Reason: Protocol Last Admin: 09/13/16 15:44 Dose: 40 mg Sodium Chloride (Sodium Chloride 0.9%) 1,000 mls @ 125 mls/hr IV .Q8H [facility] Last Admin: 09/14/16 02:48 Dose: 125 mls/hr Cefepime HCl (Maxipime 1gm) 1 gm in 100 mls @ 100 mls/hr IVPB Q8 [facility] PRN Reason: Protocol Vancomycin HCl (Vancomycin 1gm) 1 gm in 250 mls @ 167 mls/hr IVPB Q12H [facility] PRN Reason: Protocol Last Admin: 09/14/16 09:39 Dose: 167 mls/hr Insulin Human Lispro (Humalog Low) 0 units SC ACHS [facility] PRN Reason: Protocol Last Admin: 09/14/16 08:30 Dose: Not Given Ketorolac Tromethamine (Toradol) 60 mg IM Q8H [facility]N PRN Reason: moderate pain Stop: 09/18/16 14:28 Last Admin: 09/14/16 05:17 Dose: 60 mg Morphine Sulfate (Morphine) 2 mg IVP Q4H PRN PRN Reason: Pain, severe (8-10) Last Admin: 09/14/16 09:56 Dose: 2 mg Ondansetron HCl (Zofran Inj) 4 mg IVP Q6H PRN PRN Reason: Nausea/Vomiting Pantoprazole Sodium (Protonix Inj) 40 mg IVP DAILY [facility] Last Admin: 09/14/16 09:38 Dose: 40 mg - Labs Labs: 09/14/16 08:00 09/14/16 08:00 PT 12.4 Seconds (9.9-11.8) H 09/14/16 08:00 INR 1.15 (0.93-1.08) H 09/14/16 08:00 APTT 27.6 Seconds (23.7-30.8) 09/14/16 08:00 - Constitutional Appears: No Acute Distress - Head Exam Head Exam: ATRAUMATIC, NORMAL INSPECTION, NORMOCEPHALIC - Eye Exam Eye Exam: Normal appearance, PERRL Pupil Exam: Mydriatic, NORMAL ACCOMODATION, PERRL - ENT Exam ENT Exam: Mucous Membranes Moist - Neck Exam Neck Exam: Full ROM, Normal Inspection - Respiratory Exam Respiratory Exam: Clear to Ausculation Bilateral, NORMAL BREATHING PATTERN. absent: Rales, Rhonchi, Wheezes - Cardiovascular Exam Cardiovascular Exam: REGULAR RHYTHM, +S1, +S2. absent: Gallop, Rubs, Murmur - GI/Abdominal Exam GI & Abdominal Exam: Soft, Normal Bowel Sounds. absent: Rigid, Tenderness, Mass , Rebound - Extremities Exam Extremities Exam: Normal Inspection. absent: Calf Tenderness, Pedal Edema - Neurological Exam Neurological Exam: Alert, Awake, CN II-XII Intact, Oriented x3 Neuro motor strength exam: Left Upper Extremity: 5, Right Upper Extremity: 5, Left Lower Extremity: 5, Right Lower Extremity: 5 Additional comments: Sensation intact bilaterally in both upper and lower extremities - Psychiatric Exam Psychiatric exam: Normal Affect, Normal Mood - Skin Skin Exam: Dry, Intact, Normal Color, Warm Assessment and Plan - Assessment and Plan (Free Text) Assessment: This is a 46Y M with PMH of DM, HTN, HLD and substance abuse noted to have T12 compression with retropulsion of bone into spinal canal compression. Patient planned for OR this afternoon. Plan: Neuro: Neurocheck q1h Neurosurgery consulted- plans for surgery this afternoon No neuro defecits seen at this time Substance abuse-heroin and cocaine- no withdrawal symptoms noted at the moment Continue to monitor for withdrawal UDS positive for multiple substances Morphine 2mg q4h prn for pain control Decadron 4mg q6h CV: HD stable at this time. Maintain MAP >65 Resp: O2 normal on room air Continue to maintain spO2>90% GI: Zofran prn nausea No diarrhea- loss of bowel function Continue to monitor Renal: Monitor electrolytes and will replace as needed Ck mildly elevated NS@125 Heme: Continue to monitor CBC- Hgb stable ID: Afebrile, leukocytosis resolved PCT low Blood and urine culture pending Rapid HIV negative Endo: BGM ACHS ISS Maintain euglycemia Psych: Hx of substance abuse Monitor for withdrawal - no withdrawal symptoms at this time Patient expressed wishes to get clean. GI ppx: Protonix DVT ppx: Lovenox- held for surgery Case seen, discussed and reviewed with attending. Janice Sanchez PGY1 <Oniel Da Silva - Last Filed: 09/14/16 17:36> Objective - Vital Signs/Intake and Output Vital Signs (last 24 hours): Temp Pulse Resp BP Pulse Ox 98.6 F 68 22 111/65 91 L 09/14/16 12:00 09/14/16 14:30 09/14/16 14:30 09/14/16 14:00 09/14/16 14:30 Intake and Output: 09/14/16 09/14/16 06:59 18:59 Intake Total 1500 Output Total 850 Balance 650 - Medications Medications: Current Medications Atorvastatin Calcium (Lipitor) 20 mg PO DAILY [facility] Last Admin: 09/14/16 09:21 Dose: Not Given Dexamethasone (Decadron Inj) 4 mg IVP Q6H [facility] Last Admin: 09/14/16 09:37 Dose: 4 mg Enoxaparin Sodium (Lovenox) 40 mg SC DAILY [facility] PRN Reason: Protocol Last Admin: 09/13/16 15:44 Dose: 40 mg Sodium Chloride (Sodium Chloride 0.9%) 1,000 mls @ 125 mls/hr IV .Q8H [facility] Last Admin: 09/14/16 15:57 Dose: Not Given Cefepime HCl (Maxipime 1gm) 1 gm in 100 mls @ 100 mls/hr IVPB Q8 [facility] PRN Reason: Protocol Last Admin: 09/14/16 13:30 Dose: 100 mls/hr Vancomycin HCl (Vancomycin 1gm) 1 gm in 250 mls @ 167 mls/hr IVPB Q12H [facility] PRN Reason: Protocol Last Admin: 09/14/16 09:39 Dose: 167 mls/hr Insulin Human Lispro (Humalog Low) 0 units SC ACHS [facility] PRN Reason: Protocol Last Admin: 09/14/16 11:58 Dose: Not Given Ketorolac Tromethamine (Toradol) 60 mg IM Q8H PRN PRN Reason: moderate pain Stop: 09/18/16 14:28 Last Admin: 09/14/16 05:17 Dose: 60 mg Morphine Sulfate (Morphine) 2 mg IVP Q4H PRN PRN Reason: Pain, severe (8-10) Last Admin: 09/14/16 09:56 Dose: 2 mg Ondansetron HCl (Zofran Inj) 4 mg IVP Q6H PRN PRN Reason: Nausea/Vomiting Pantoprazole Sodium (Protonix Inj) 40 mg IVP DAILY [facility] Last Admin: 09/14/16 09:38 Dose: 40 mg - Labs Labs: 09/14/16 08:00 09/14/16 08:00 PT 12.4 Seconds (9.9-11.8) H 09/14/16 08:00 INR 1.15 (0.93-1.08) H 09/14/16 08:00 APTT 27.6 Seconds (23.7-30.8) 09/14/16 08:00 Addendum Addendum: 09/14/16 17:30 patient was seen, examined and discussed with Dr. Sanchez at bedside. Her note refelcts my exam, assessment and plan, except as below Meds/Labs/ONE reviewed. 46 yo male with traumatic, unstable spine fracture with some elements of spina ecquina syndrome. patient is on decadron and currently will be undergoing surgery to stabilize fracture. ccm time 40 min
[2016-09-14] MEDS: Cefepime 1gm in NS 100ml 1 GM/100 ML BAG IVPB SCH ×2 (13:30→21:14)
[2016-09-14] MEDS ORDERED: Propofol 10 mg/ml Inj (20 ML) ONE ×2 (14:13→16:13)
[2016-09-14] MEDS ORDERED: Succinylcholine 200 mg/10 ml Inj IV ONE (14:14)
[2016-09-14] MEDS ORDERED: Midazolam 2 MG/2 ML VIAL ONE (14:15)
[2016-09-14] MEDS ORDERED: Thrombin Topical 5,000 IU Spray Kit ONE (14:37)
[2016-09-14] MEDS ORDERED: Absorbable Gelatin Sponge Size 100 ONE (14:37)
[2016-09-14] MEDS ORDERED: Bupivacaine 0.5% Inj(30mL) ONE (14:37)
[2016-09-14] MEDS ORDERED: Lidocaine 1%/Epinephrine 1:100000 30 ml vial ONE (14:37)
[2016-09-14] MEDS ORDERED: Heparin 10,000 Units/ml ONE (14:38)
[2016-09-14] MEDS ORDERED: Vancomycin 1 g Inj ONE (15:11)
[2016-09-14] MEDS ORDERED: Bacitracin Ointment 30 GM TUBE ONE (17:57)
[2016-09-14] MEDS ORDERED: Lactated Ringer's 1,000 ML IV SCH (19:34)
[2016-09-14] MEDS ORDERED: HYDROmorphone 0.5 mg/0.5 ml ISec IVP PRN (19:34)
[2016-09-14] MEDS: HYDROmorphone 0.5 mg/0.5 ml ISec ONE ×2 (19:47→20:00)
[2016-09-14] MEDS ORDERED: HYDROmorphone 0.5 mg/0.5 ml ISec ONE (19:50)
[2016-09-14] MEDS: HYDROmorphone 0.2 mg/ml (25ml) 25 ML IV PRN (20:52)
[2016-09-15] MEDS: HYDROmorphone 0.2 mg/ml (25ml) 25 ML IV PRN ×4 (01:39→23:58)
[2016-09-15] MEDS: Dexamethasone 4 mg/1 ml IVP SCH ×4 (05:30→22:18)
[2016-09-15] MEDS: Cefepime 1gm in NS 100ml 1 GM/100 ML BAG IVPB SCH ×3 (06:02→22:52)
[2016-09-15 07:21] LABS: HEMATOCRIT 33.7 % (42.0-52.0); MEAN CELL VOLUME 92.1 fL (80.0-105.0); MEAN CORPUSCULAR HEMOGLOBIN 29.8 pg (25.0-35.0); MEAN CORPUSCULAR HGB CONC 32.3 g/dl (31.0-37.0); WHITE BLOOD COUNT 12.3 10^3/ul (4.5-11.0)
[2016-09-15 07:36] LABS: ALB/GLOB RATIO 1.1 (1.1-1.8); ALKALINE PHOSPHATASE 100 U/L (38-133); ALT/SGPT 45 U/L (7-56); AST/SGOT 63 U/L (15-59); BILIRUBIN,TOTAL 0.6 mg/dL (0.2-1.3); BLOOD UREA NITROGEN 20 mg/dL (7-21); CALCIUM 7.8 mg/dL (8.4-10.5); CARBON DIOXIDE 25 mmol/L (21-33); CHLORIDE 107 mmol/L (95-110); GFR AFRICAN-AMERICAN > 60; GLUCOSE,RANDOM 171 mg/dL (70-110); POTASSIUM 3.7 mmol/L (3.6-5.0); SODIUM 139 mmol/L (132-148); TOTAL PROTEIN 5.4 g/dL (5.8-8.3)
--- NOTE | 2016-09-15 07:52 | CP.PCM.PN ---
<Patricia Sanchez - Last Filed: 09/15/16 11:41> Subjective - Date & Time of Evaluation Date of Evaluation: 09/15/16 Time of Evaluation: 07:36 - Subjective Subjective: ICU Progress Note Patient seen and examined at bedside. There were no acute overnight events. He had a decompression with fixation and fusion T10-L2 yesterday, POD#1. He tolerated the procedure well and has a GROUNDSKEEPER pump. The patient still complains of numbness/tingling of bilateral 4th and 5th fingers and has back pain at the surgical site. He denies CP, SOB, weakness, incontinence, n/v/d. He also says he has been passing gas. Objective - Vital Signs/Intake and Output Vital Signs (last 24 hours): Temp Pulse Resp BP Pulse Ox 98 F 66 23 98/53 L 97 09/15/16 04:18 09/15/16 05:30 09/15/16 05:30 09/15/16 05:00 09/15/16 05:30 Intake and Output: 09/15/16 09/15/16 06:59 18:59 Intake Total 1950 Output Total 1200 Balance 750 - Medications Medications: Current Medications Atorvastatin Calcium (Lipitor) 20 mg PO DAILY [facility] Last Admin: 09/14/16 09:21 Dose: Not Given Dexamethasone (Decadron Inj) 4 mg IVP Q6H [facility] Last Admin: 09/15/16 05:30 Dose: 4 mg Enoxaparin Sodium (Lovenox) 40 mg SC DAILY [facility] PRN Reason: Protocol Last Admin: 09/13/16 15:44 Dose: 40 mg Hydromorphone HCl (Dilaudid) 0.5 mg IVP Q15M PRN PRN Reason: Pain, moderate (4-7) Cefepime HCl (Maxipime 1gm) 1 gm in 100 mls @ 100 mls/hr IVPB Q8 [facility] PRN Reason: Protocol Last Admin: 09/15/16 06:02 Dose: 100 mls/hr Vancomycin HCl (Vancomycin 1gm) 1 gm in 250 mls @ 167 mls/hr IVPB Q12H [facility] PRN Reason: Protocol Last Admin: 09/14/16 21:14 Dose: 167 mls/hr Sodium Chloride (Sodium Chloride 0.9%) 1,000 mls @ 125 mls/hr IV .Q8H [facility] Hydromorphone HCl (Dilaudid 0.2 Mg/Ml Sample Book Maker) 25 mls @ 1 mls/hr IV .Q24H PRN PRN Reason: PER MD ORDER Last Admin: 09/15/16 01:39 Dose: 1 mls/hr Insulin Human Lispro (Humalog Low) 0 units SC ACHS [facility] PRN Reason: Protocol Last Admin: 09/14/16 22:00 Dose: Not Given Ketorolac Tromethamine (Toradol) 60 mg IM Q8H PRN PRN Reason: moderate pain Stop: 09/18/16 14:28 Last Admin: 09/15/16 00:31 Dose: 60 mg Morphine Sulfate (Morphine) 2 mg IVP Q4H PRN PRN Reason: Pain, severe (8-10) Last Admin: 09/14/16 09:56 Dose: 2 mg Ondansetron HCl (Zofran Inj) 4 mg IVP Q6H PRN PRN Reason: Nausea/Vomiting Pantoprazole Sodium (Protonix Inj) 40 mg IVP DAILY [facility] Last Admin: 09/14/16 09:38 Dose: 40 mg - Labs Labs: 09/15/16 06:45 09/14/16 08:00 PT 12.4 Seconds (9.9-11.8) H 09/14/16 08:00 INR 1.15 (0.93-1.08) H 09/14/16 08:00 APTT 27.6 Seconds (23.7-30.8) 09/14/16 08:00 - Constitutional Appears: No Acute Distress - Head Exam Head Exam: ATRAUMATIC, NORMAL INSPECTION, NORMOCEPHALIC - Eye Exam Eye Exam: Normal appearance, PERRL Pupil Exam: NORMAL ACCOMODATION, PERRL - ENT Exam ENT Exam: Mucous Membranes Moist - Neck Exam Neck Exam: Full ROM, Normal Inspection - Respiratory Exam Respiratory Exam: Clear to Ausculation Bilateral, NORMAL BREATHING PATTERN. absent: Rales, Rhonchi, Wheezes - Cardiovascular Exam Cardiovascular Exam: REGULAR RHYTHM, +S1, +S2. absent: Gallop, Rubs, Murmur - GI/Abdominal Exam GI & Abdominal Exam: Soft, Normal Bowel Sounds. absent: Rigid, Tenderness, Mass , Rebound - Extremities Exam Extremities Exam: Full ROM, Normal Capillary Refill, Normal Inspection. absent : Calf Tenderness, Pedal Edema - Back Exam Additional comments: Dressing in place- clean and dry. - Neurological Exam Neurological Exam: Alert, Awake, CN II-XII Intact, Oriented x3 Neuro motor strength exam: Left Upper Extremity: 5, Right Upper Extremity: 5, Left Lower Extremity: 5, Right Lower Extremity: 5 - Psychiatric Exam Psychiatric exam: Normal Affect, Normal Mood - Skin Skin Exam: Dry, Intact, Normal Color, Warm Assessment and Plan - Assessment and Plan (Free Text) Assessment: This is a 46Y M with PMH of DM, HTN, HLD and substance abuse noted to have T12 compression with retropulsion of bone into spinal canal compression. Patient is s/p decompression with fixation and fusion of T10-L2, POD#1. Plan: Neuro: No neuro deficits at this time CT neck for bilateral 5th finger n/t as per primary Continue Neurocheck q1h Neurosurgery consulted-recs appreciated. Pain control with GROUNDSKEEPER pump Morphine 2mg q4h prn for pain control Decadron 4mg q6h CV: Hemodynamically stable Maintain MAP >65 Resp: Continue to maintain spO2>90% On 3L NC GI: Passing gas- Clear liquid diet Zofran prn nausea Continue to monitor for BM Renal: Monitor electrolytes and will replace as needed Continue NS@125 DC arnett- and monitor output Heme: Hgb stable Continue to monitor CBC ID: Afebrile, with mild leukocytosis On Cefepime and Vanco Blood culture no growth after 24hrs x 2 Endo: HgbA1c: 6.3 BGM ACHS ISS Maintain euglycemia Psych: Hx of substance abuse Monitor for withdrawal GI ppx: Protonix DVT ppx: Lovenox Dispo: Spoke with Dr. Azar who reports patient can be transferred to med/ surg. Case seen, discussed and reviewed with attending. Janice Sanchez PGY1 <Oniel Da Silva - Last Filed: 09/15/16 15:48> Objective - Vital Signs/Intake and Output Vital Signs (last 24 hours): Temp Pulse Resp BP Pulse Ox 98.4 F 72 20 109/52 L 100 09/15/16 11:03 09/15/16 15:00 09/15/16 14:54 09/15/16 14:54 09/15/16 14:00 Intake and Output: 09/15/16 09/15/16 06:59 18:59 Intake Total 1950 Output Total 1200 Balance 750 - Medications Medications: Current Medications Atorvastatin Calcium (Lipitor) 20 mg PO DAILY [facility] Last Admin: 09/15/16 09:32 Dose: 20 mg Dexamethasone (Decadron Inj) 4 mg IVP Q6H [facility] Last Admin: 09/15/16 09:31 Dose: 4 mg Enoxaparin Sodium (Lovenox) 40 mg SC DAILY [facility] PRN Reason: Protocol Last Admin: 09/13/16 15:44 Dose: 40 mg Hydromorphone HCl (Dilaudid) 0.5 mg IVP Q15M PRN PRN Reason: Pain, moderate (4-7) Cefepime HCl (Maxipime 1gm) 1 gm in 100 mls @ 100 mls/hr IVPB Q8 [facility] PRN Reason: Protocol Last Admin: 09/15/16 13:10 Dose: 100 mls/hr Vancomycin HCl (Vancomycin 1gm) 1 gm in 250 mls @ 167 mls/hr IVPB Q12H [facility] PRN Reason: Protocol Last Admin: 09/15/16 08:14 Dose: 167 mls/hr Sodium Chloride (Sodium Chloride 0.9%) 1,000 mls @ 125 mls/hr IV .Q8H [facility] Last Admin: 09/15/16 08:54 Dose: 125 mls/hr Hydromorphone HCl (Dilaudid 0.2 Mg/Ml Sample Book Maker) 25 mls @ 0 mls/hr IV .Q0M PRN PRN Reason: PER MD ORDER Stop: 09/17/16 20:02 Last Admin: 09/15/16 15:39 Dose: 0.0001 mls/hr Insulin Human Lispro (Humalog Low) 0 units SC ACHS [facility] PRN Reason: Protocol Last Admin: 09/15/16 11:43 Dose: 3 units Ketorolac Tromethamine (Toradol) 30 mg IVP Q8H PRN PRN Reason: Pain, moderate (4-7) Last Admin: 09/15/16 09:49 Dose: 30 mg Morphine Sulfate (Morphine) 2 mg IVP Q4H PRN PRN Reason: Pain, severe (8-10) Last Admin: 09/14/16 09:56 Dose: 2 mg Ondansetron HCl (Zofran Inj) 4 mg IVP Q6H PRN PRN Reason: Nausea/Vomiting Pantoprazole Sodium (Protonix Inj) 40 mg IVP DAILY [facility] Last Admin: 09/15/16 09:32 Dose: 40 mg Simethicone (Mylicon Chew Tab) 80 mg PO [facility] PRN PRN Reason: GI distress - Labs Labs: 09/15/16 06:45 09/15/16 06:45 PT 12.4 Seconds (9.9-11.8) H 09/14/16 08:00 INR 1.15 (0.93-1.08) H 09/14/16 08:00 APTT 27.6 Seconds (23.7-30.8) 09/14/16 08:00 Addendum Addendum: 09/15/16 15:47 patient was seen, examined and discussed with Dr. Sanchez. Her note reflects my exam, assessment and plan, except as below. meds/labs/one reviewed. 46 yo with traumatic and unstable spinal fracture, now s/p stabilizing surgery. Would continue with pain control, pulmonayr toilet, chest PT, IS, PT/OT. Ok to downgrade to medsurg as per Nsx ccm time 40 min
[2016-09-15] MEDS: Insulin Lispro (humaLOG) LOW Coverage SC SCH ×4 (08:12→22:59)
[2016-09-15] MEDS: Vancomycin 1gm in NS 250ml 1 GM/250 ML BAG IVPB SCH ×2 (08:14→21:10)
[2016-09-15] MEDS: Sodium Chloride 0.9% 1,000 ML IV SCH ×2 (08:54→22:48)
--- NOTE | 2016-09-15 09:09 | CARD ---
APPROVED REPORT EXAM: Two-dimensional and M-mode echocardiogram with Doppler and color Doppler. Other Information Quality : AverageRhythm : INDICATION Dyspnea 2D DIMENSIONS Left Atrium (2D)4.0 (1.6-4.0cm)IVSd1.1 (0.7-1.1cm) LVDd5.2 (3.9-5.9cm)PWd1.1 (0.7-1.1cm) LVDs3.4 (2.5-4.0cm)FS (%) 34.9 % LVEF (%)63.0 (>50%) M-Mode DIMENSIONS Aortic Root3.20 (2.2-3.7cm)Aortic Cusp Exc.1.90 (1.5-2.0cm) Aortic Valve AoV Peak Ngmnrdbb010.0cm/s Mitral Valve MV E Yhipqmjy12.7cm/sMV A Zwhorblv16.4cm/sE/A ratio1.3 TDI E/Lateral E'0.0E/Medial E'0.0 Tricuspid Valve TR Peak [id number]/sRAP [id number] Peak Gr.23mmHg [id number] LEFT VENTRICLE The left ventricle is normal size. There is normal left ventricular wall thickness. The left ventricular function is normal. The left ventricular ejection fraction is within the normal range. There is normal LV segmental wall motion. RIGHT VENTRICLE The right ventricle is normal size. ATRIA The left atrium size is normal. The right atrium size is normal. The interatrial septum is intact with no evidence for an atrial septal defect. AORTIC VALVE The aortic valve is normal in structure. MITRAL VALVE The mitral valve is normal in structure. TRICUSPID VALVE The tricuspid valve is normal in structure. There is trace to mild tricuspid regurgitation. PULMONIC VALVE The pulmonic valve is not well visualized. GREAT VESSELS The aortic root is normal in size. PERICARDIAL EFFUSION There is no pericardial effusion. <Conclusion> The left ventricle is normal size. There is normal left ventricular wall thickness. The left ventricular function is normal.
--- NOTE | 2016-09-15 10:15 | RAD ---
PROCEDURE: Fluoroscopy up to 1 hour HISTORY: DECOMPRESSION WITH FUSION FIXATION T-10 - L-2 COMPARISON: TECHNIQUE: Fluoroscopy was provided in the operating room. Four images were obtained FINDINGS: The study shows placement of pedicle screws and rods in the lower thoracic and upper lumbar spine as well as laminectomy defects IMPRESSION: As above
[2016-09-15] MEDS ORDERED: Simethicone 80 mg Chewtab PO PRN (12:12)
--- NOTE | 2016-09-15 12:28 | OP ---
PROCEDURE DATE: 09/14/2016 PREOPERATIVE DIAGNOSIS: Unstable burst fracture at T12 with spinal cord compression. POSTOPERATIVE DIAGNOSIS: Unstable burst fracture at T12 with spinal cord compression. OPERATION: 1. Decompressive laminectomy, T12. 2. Posterior spinal fusion, T10-L2. 3. Use of segmental spinal instrumentation. 4. Use of autograft by means of bone marrow aspiration. SURGEON: Baldemar Azar MD HUMAN RESOURCES TALENT MANAGER: Stephen Alcantar MD ANESTHESIA: General endotracheal tube intubation. PROCEDURE: The patient was brought to the operating room and general anesthesia was achieved. Intra venous antibiotics had already been given in the intensive care unit prior the patient's transfer. S juana cord monitoring leads were placed throughout the patient's body. Realtime monitoring was done by certified dialysis technician in the room and remote monitoring done by physician as well. Sequential compression cameron ots were placed to each of the patient's legs. The patient already had a Matson catheter inserted. B aseline monitoring was done and showed some diminution in the SSEPs of the left lower extremity, but otherwise everything else was intact. The patient was then gently logrolled and placed in the prone position on a Wally frame on the operating table. Care was taken to protect the elbows and knees fr om pressure points. A Steri-Drape was used to seal off the patient's perineal region from the operat whit field. His back was sterilely prepped and draped. Another stimulation was done and there was no change from prepositioning to postpositioning on the operating table. Lidocaine with epinephrine wa s used to infiltrate the site for the incision as located under fluoroscopy. An incision was then ma de sharply in the midline, taken down to subcutaneous tissue using sharp and blunt dissection. Hemos tasis achieved using electrocautery. The fascia was divided and stripped laterally and the muscles s tripped laterally off the spinous processes and lamina out to the level of the rib heads as well as t he L1 and L2 transverse processes. Hemostasis achieved with thrombinated Gelfoam powder as well as e lectrocautery. Multiple fluoroscopic views were taken to confirm we were at the appropriate levels a nd that was the case. A Leksell rongeur was used to remove the spinous processes and thin down the l liset and then a 2 mm Kerrison rongeur was used to perform the laminectomy at the level of the compre ssion of the cord. It was done in a caudal to cephalad fashion, first centrally and then out lateral ly to each side until we could see the round contour of the cord. No changes in electrophysiologic m onitoring were noted before and after the decompression. Thrombinated Gelfoam powder was used for he mostasis. We then turned our attention to the fusion. A trocar was placed in the posterior right ilium and 180 mL of bone marrow aspirate was obtained. This was passed to the certified dialysis technician who processed it sterile ly through the harvest system and then returned the collected stem cells back to the OR table. The c ells were then used to soak pieces of the Conform hydroxyapatite sponge and sponges as well as proces sed through the IC chamber. Thrombinated Gelfoam powder was used for hemostasis at the donor site. The Leksell rongeur was used to remove the spinous processes to allow for placement of crosslinks sub sequently between the 2 rods. All of this bone was morselized and combined with the IC chamber bone as well as the Optium putty to create a bone grafting substrate. Under fluoroscopic guidance, the dr ill was used to create an entry point for the right T10 pedicle. The gearshift tool was used to crea te a channel through the pedicle and the bone integrity confirmed with a ball tip probe, and a 6.0 x 45 mm Expedium screw was inserted. Motor stimulation was done and no changes were noted. In similar fashion, under fluoroscopic guidance, the drill was used to create the entry point for the left T10 screw and the gearshift tool used to create the channel through the pedicle. Once the bone integrity was confirmed, another 45 x 6.0 Expedium screw was inserted and again stimulation after placement of the screw revealed no changes. We then moved down to the T11 level where a similar technique was used with the drill, the gearshift, the sharp gearshift tool and the ball tip probe and 50 mm x 6.0 screws were inserted on each side. Motor stimulation after the placement of each screw revealed no abnormalities. We then moved down to the lumbar level. The trial mark was used to try and line up placement with the previously placed 2 screws on each side. The drill was used to create the entry point as located un torsten fluoroscopy and lined up with the mark for the right L1 screw. The blunt gearshift tool was then used to create a channel through the pedicle and the bone integrity confirmed, and on each side a 6.0 x 55 mm screw was inserted. Stimulation again after placement of the screw was done, although we fe lt we were below the conus at that level, but no changes were noted with any of the tracings. The fi nal pair of screws were then placed at L2 using similar technique in terms of the drill, the gearshif t tool, and the ball tipped probe, and 6.0 x 60 mm Expedium screws were inserted at each level, and a gain stimulation revealed no abnormalities post placement. What was left of the medial borders above and below the laminectomy site and then laterally towards the rib heads as well as the L1-L2 transve rse processes were decorticated using a high speed drill. A 480 mm mark was cut into sections and con toured to fit the 4 screws and then this was tightened with caps and torqued appropriately. An A5 an d A6 crosslink were placed to add rotational stability by bridging the 2 rods. The marrow-soaked Con form sponges and all the bone grafting substrate was then packed medially above and below the laminec ej site and then laterally over the course of the entire decorticated area on each side. Final AP and lateral fluoroscopic views showed excellent position of the hardware. A shot was taken with 2 fr ee nuts to delineate the site of the laminectomy and it included the area of maximal compression. Th e nuts were then removed and final a fluoroscopic view showed good position of the hardware with no o ther retained pieces. The wound was closed in layers with interrupted sutures of 0 Vicryl for the mu scle and the fascia. Some vancomycin powder was sprinkled on the muscle prior to closure of the fasc ia. The subcutaneous tissue was then copiously irrigated with antibiotic solution. More vancomycin powder was sprinkled into the wound on the fascia and subcutaneous tissues, and then subcutaneous tis brandon was approximated using interrupted sutures of 2-0 Vicryl. The skin was closed with cheryle. Siria itracin ointment and sterile dressing were applied centrally and a small bacitracin/Band-Aid dressing was applied over the marrow donor site on the right posterior ilium. The patient was then transferr ed back to his bed in the supine position. He was awakened and extubated. He was taken to recovery room in stable condition having tolerated the procedure well. Estimated blood loss is 700 mL. He re ceived 1700 mL of crystalloid during the operation as well as 500 mL back from the Cell Saver. He baca d a urine output of approximately 300 mL over the course of the procedure. Final electrophysiologic monitoring showed no permanent changes compared to the baseline moderating at the beginning of the ca se. Baldemar Azar MD cc: [phone] TT: 09/15/2016 12:27:33 mn
--- NOTE | 2016-09-15 14:22 | CP.PCM.PN ---
<RocioIan mcclellan - Last Filed: 09/15/16 14:13> Subjective - Date & Time of Evaluation Date of Evaluation: 09/15/16 Time of Evaluation: 14:13 - Subjective Subjective: Patient seen at bedside. No acute events overnight. Patient is complaining of parasthesias to medial hands bilaterally. Bowel and bladder function are normal. He denies numbness to lower extremities. Pain is well controlled. Objective - Vital Signs/Intake and Output Vital Signs (last 24 hours): Temp Pulse Resp BP Pulse Ox 98.4 F 80 24 98/42 L 97 09/15/16 11:03 09/15/16 10:20 09/15/16 11:03 09/15/16 11:03 09/15/16 10:20 Intake and Output: 09/15/16 09/15/16 06:59 18:59 Intake Total 1950 Output Total 1200 Balance 750 - Medications Medications: Current Medications Atorvastatin Calcium (Lipitor) 20 mg PO DAILY [facility] Last Admin: 09/15/16 09:32 Dose: 20 mg Dexamethasone (Decadron Inj) 4 mg IVP Q6H [facility] Last Admin: 09/15/16 09:31 Dose: 4 mg Enoxaparin Sodium (Lovenox) 40 mg SC DAILY [facility] PRN Reason: Protocol Last Admin: 09/13/16 15:44 Dose: 40 mg Hydromorphone HCl (Dilaudid) 0.5 mg IVP Q15M PRN PRN Reason: Pain, moderate (4-7) Cefepime HCl (Maxipime 1gm) 1 gm in 100 mls @ 100 mls/hr IVPB Q8 [facility] PRN Reason: Protocol Last Admin: 09/15/16 13:10 Dose: 100 mls/hr Vancomycin HCl (Vancomycin 1gm) 1 gm in 250 mls @ 167 mls/hr IVPB Q12H [facility] PRN Reason: Protocol Last Admin: 09/15/16 08:14 Dose: 167 mls/hr Sodium Chloride (Sodium Chloride 0.9%) 1,000 mls @ 125 mls/hr IV .Q8H [facility] Last Admin: 09/15/16 08:54 Dose: 125 mls/hr Hydromorphone HCl (Dilaudid 0.2 Mg/Ml Paper Steamer) 25 mls @ 0 mls/hr IV .Q0M PRN PRN Reason: PER MD ORDER Stop: 09/17/16 20:02 Insulin Human Lispro (Humalog Low) 0 units SC ACHS [facility] PRN Reason: Protocol Last Admin: 09/15/16 11:43 Dose: 3 units Ketorolac Tromethamine (Toradol) 30 mg IVP Q8H PRN PRN Reason: Pain, moderate (4-7) Last Admin: 09/15/16 09:49 Dose: 30 mg Morphine Sulfate (Morphine) 2 mg IVP Q4H PRN PRN Reason: Pain, severe (8-10) Last Admin: 09/14/16 09:56 Dose: 2 mg Ondansetron HCl (Zofran Inj) 4 mg IVP Q6H PRN PRN Reason: Nausea/Vomiting Pantoprazole Sodium (Protonix Inj) 40 mg IVP DAILY [facility] Last Admin: 09/15/16 09:32 Dose: 40 mg Simethicone (Mylicon Chew Tab) 80 mg PO PCHS PRN PRN Reason: GI distress - Labs Labs: 09/15/16 06:45 09/15/16 06:45 PT 12.4 Seconds (9.9-11.8) H 09/14/16 08:00 INR 1.15 (0.93-1.08) H 09/14/16 08:00 APTT 27.6 Seconds (23.7-30.8) 09/14/16 08:00 - Constitutional Appears: Non-toxic, No Acute Distress - Head Exam Head Exam: ATRAUMATIC, NORMOCEPHALIC - Eye Exam Eye Exam: EOMI, PERRL - ENT Exam ENT Exam: Mucous Membranes Moist - Neck Exam Neck Exam: Full ROM, Normal Inspection. absent: Lymphadenopathy - Respiratory Exam Respiratory Exam: Clear to Ausculation Bilateral. absent: Rales, Rhonchi, Wheezes - Cardiovascular Exam Cardiovascular Exam: REGULAR RHYTHM, +S1, +S2 - GI/Abdominal Exam GI & Abdominal Exam: Soft, Normal Bowel Sounds. absent: Tenderness - Extremities Exam Extremities Exam: Full ROM, Normal Capillary Refill, Normal Inspection. absent : Calf Tenderness, Pedal Edema - Back Exam Additional comments: surgical site cleaned and dressed. No evidence of site infection. - Neurological Exam Neurological Exam: Alert, Awake, CN II-XII Intact, Oriented x3 Neuro motor strength exam: Left Upper Extremity: 5, Right Upper Extremity: 5, Left Lower Extremity: 5, Right Lower Extremity: 5 - Psychiatric Exam Psychiatric exam: Normal Affect, Normal Mood - Skin Skin Exam: Dry, Warm Assessment and Plan - Assessment and Plan (Free Text) Assessment: 46 y/o male with hx IDDM presenting s/p fall with a fracture to T12 vertebrae and compression of cauda equina s/p decompression and fixation T12 to L2. T12 fracture w/ cauda equina compression s/p decpression, internal fixation T12 - L2 POD 1 - continue neurochecks - continue pain management - incentive spirometry - continue abx pending final culture, f/u procalcitonin Hx substance abuse - rapid HIV due to possible IVDA - negative - counseled on narcotics management DM - SSI - low - holding home PO meds while inpatient - diabetic diet - fingerstick ACHS PPX - lovenox 40mg daily - Protonix 40mg daily <Daphne Reyes - Last Filed: 09/17/16 17:19> Objective - Vital Signs/Intake and Output Vital Signs (last 24 hours): Temp Pulse Resp BP Pulse Ox 97 F L 74 20 125/81 98 09/17/16 16:00 09/17/16 16:00 09/17/16 16:00 09/17/16 16:00 09/17/16 16:00 Intake and Output: 09/17/16 09/17/16 06:59 18:59 Intake Total 5746 960 Output Total 4200 3050 Balance 1546 -2090 - Medications Medications: Current Medications Atorvastatin Calcium (Lipitor) 20 mg PO DAILY [facility] Last Admin: 09/17/16 11:57 Dose: 20 mg Bacitracin (Bacitracin) 0 gm TOP DAILY [facility] Last Admin: 09/17/16 15:39 Dose: 1 applic Dexamethasone (Decadron Inj) 4 mg IVP Q8 [facility] Last Admin: 09/17/16 15:40 Dose: 4 mg Docusate Sodium (Colace) 100 mg PO BID [facility] Last Admin: 09/17/16 11:04 Dose: Not Given Enoxaparin Sodium (Lovenox) 40 mg SC DAILY [facility] PRN Reason: Protocol Last Admin: 09/13/16 15:44 Dose: 40 mg Hydromorphone HCl (Dilaudid) 0.5 mg IVP Q15M PRN PRN Reason: Pain, moderate (4-7) Sodium Chloride (Sodium Chloride 0.9%) 1,000 mls @ 125 mls/hr IV .Q8H [facility] Last Admin: 09/17/16 15:20 Dose: 125 mls/hr Hydromorphone HCl (Dilaudid 0.2 Mg/Ml Paper Steamer) 25 mls @ 0 mls/hr IV .Q0M PRN PRN Reason: PER MD ORDER Stop: 09/17/16 20:02 Last Admin: 09/17/16 12:00 Dose: 1 mls/hr Insulin Human Lispro (Humalog Med) 0 units SC ACHS [facility] PRN Reason: Protocol Last Admin: 09/17/16 16:10 Dose: 5 units Ketorolac Tromethamine (Toradol) 30 mg IVP Q8H PRN PRN Reason: Pain, moderate (4-7) Last Admin: 09/16/16 20:23 Dose: 30 mg Morphine Sulfate (Morphine) 2 mg IVP Q4H PRN PRN Reason: Pain, severe (8-10) Last Admin: 09/14/16 09:56 Dose: 2 mg Ondansetron HCl (Zofran Inj) 4 mg IVP Q6H PRN PRN Reason: Nausea/Vomiting Pantoprazole Sodium (Protonix Inj) 40 mg IVP DAILY [facility] Last Admin: 09/17/16 11:55 Dose: 40 mg Simethicone (Mylicon Chew Tab) 80 mg PO PCHS PRN PRN Reason: GI distress - Labs Labs: 09/17/16 07:28 09/17/16 07:28 PT 12.4 Seconds (9.9-11.8) H 09/14/16 08:00 INR 1.15 (0.93-1.08) H 09/14/16 08:00 APTT 27.6 Seconds (23.7-30.8) 09/14/16 08:00 Attending/Attestation - Attestation I have personally seen and examined this patient.: Yes I have fully participated in the care of the patient.: Yes I have reviewed all pertinent clinical information, including history, physical exam and plan: Yes Notes (Text): I have seen and examined patient at bedside. Agree with the above note with the following additions/ exceptions: Briefly this is 46 year old male with history of IDDM, tobacco use, substance abuse, opioid use who got admitted for evaluation for lower back pain and lower extremity weakness secondary to fall. MRI revealed T12 fracture with compression of the cauda equina. The patient denies loss of bowel or bladder incontinence, saddle anesthesia, sexual dysfunction or any sensory deficits. Patient underwent decompression and fusion of T12-L2. He is on Dialudid ATHLETIC SCOUT. Patient complains of numbness and tingling of medial surface of arms and 4th and 5th finger. Will check cervical MRI. ESR, CRP elevated. Procal pending. Will continue decadron. Will stop antibiotics once procal comes back negative. UDS showed methadone, opiates, cocaine and BZ. Counselling provided regarding substance abuse. HIV negative. Will continue ISS. HBA1C pending. PT eval pending. Discussed in detail with the patients mother. Upon discharge will follow up with PMD of choice. Dr Daphne Reyes
--- NOTE | 2016-09-15 14:23 | CP.PCM.PN ---
Subjective - Date & Time of Evaluation Date of Evaluation: 09/15/16 Time of Evaluation: 14:22 - Subjective Subjective: POD 1 doing very well 5/5 throughout BLE's good proprioception and lt sens dsg c and d rec trans to floor OOB PT Objective - Vital Signs/Intake and Output Vital Signs (last 24 hours): Temp Pulse Resp BP Pulse Ox 98.4 F 80 24 98/42 L 97 09/15/16 11:03 09/15/16 10:20 09/15/16 11:03 09/15/16 11:03 09/15/16 10:20 Intake and Output: 09/15/16 09/15/16 06:59 18:59 Intake Total 1950 Output Total 1200 Balance 750 - Medications Medications: Current Medications Atorvastatin Calcium (Lipitor) 20 mg PO DAILY [facility] Last Admin: 09/15/16 09:32 Dose: 20 mg Dexamethasone (Decadron Inj) 4 mg IVP Q6H [facility] Last Admin: 09/15/16 09:31 Dose: 4 mg Enoxaparin Sodium (Lovenox) 40 mg SC DAILY [facility] PRN Reason: Protocol Last Admin: 09/13/16 15:44 Dose: 40 mg Hydromorphone HCl (Dilaudid) 0.5 mg IVP Q15M PRN PRN Reason: Pain, moderate (4-7) Cefepime HCl (Maxipime 1gm) 1 gm in 100 mls @ 100 mls/hr IVPB Q8 [facility] PRN Reason: Protocol Last Admin: 09/15/16 13:10 Dose: 100 mls/hr Vancomycin HCl (Vancomycin 1gm) 1 gm in 250 mls @ 167 mls/hr IVPB Q12H [facility] PRN Reason: Protocol Last Admin: 09/15/16 08:14 Dose: 167 mls/hr Sodium Chloride (Sodium Chloride 0.9%) 1,000 mls @ 125 mls/hr IV .Q8H [facility] Last Admin: 09/15/16 08:54 Dose: 125 mls/hr Hydromorphone HCl (Dilaudid 0.2 Mg/Ml Ortho Nurse) 25 mls @ 0 mls/hr IV .Q0M PRN PRN Reason: PER MD ORDER Stop: 09/17/16 20:02 Insulin Human Lispro (Humalog Low) 0 units SC ACHS [facility] PRN Reason: Protocol Last Admin: 09/15/16 11:43 Dose: 3 units Ketorolac Tromethamine (Toradol) 30 mg IVP Q8H PRN PRN Reason: Pain, moderate (4-7) Last Admin: 09/15/16 09:49 Dose: 30 mg Morphine Sulfate (Morphine) 2 mg IVP Q4H PRN PRN Reason: Pain, severe (8-10) Last Admin: 09/14/16 09:56 Dose: 2 mg Ondansetron HCl (Zofran Inj) 4 mg IVP Q6H PRN PRN Reason: Nausea/Vomiting Pantoprazole Sodium (Protonix Inj) 40 mg IVP DAILY [facility] Last Admin: 09/15/16 09:32 Dose: 40 mg Simethicone (Mylicon Chew Tab) 80 mg PO PCHS PRN PRN Reason: GI distress - Labs Labs: 09/15/16 06:45 09/15/16 06:45 PT 12.4 Seconds (9.9-11.8) H 09/14/16 08:00 INR 1.15 (0.93-1.08) H 09/14/16 08:00 APTT 27.6 Seconds (23.7-30.8) 09/14/16 08:00
--- NOTE | 2016-09-15 15:40 | CT ---
PROCEDURE: CT Cervical Spine without contrast HISTORY: Upper extremity paresthesias. Recent surgery at the T12 level COMPARISON: None available. TECHNIQUE: Axial computed tomography images were obtained of the cervical spine without the use of intravenous contrast. Coronal and sagittal reformatted images were created and reviewed. Radiation dose: Total exam DLP = 768 mGy-cm. This CT exam was performed using one or more of the following dose reduction techniques: Automated exposure control, adjustment of the mA and/or kV according to patient size, and/or use of iterative reconstruction technique. FINDINGS: VERTEBRAE: No fracture. Normal alignment. No destructive bony lesion. DISCS/SPINAL CANAL/NEURAL FORAMINA: No significant central canal or neural foraminal stenosis. Discs heights are grossly preserved. PARASPINAL SOFT TISSUES: There is a small amount of air in the erector muscles of the spine related to recent surgery. This can be seen to the left of midline OTHER FINDINGS: None. IMPRESSION: Unremarkable CT of the cervical spine.
[2016-09-16] MEDS: Dexamethasone 4 mg/1 ml IVP SCH ×4 (04:15→21:39)
[2016-09-16] MEDS: Cefepime 1gm in NS 100ml 1 GM/100 ML BAG IVPB SCH ×3 (05:45→22:24)
[2016-09-16] MEDS: HYDROmorphone 0.2 mg/ml (25ml) 25 ML IV PRN ×3 (06:32→21:33)
[2016-09-16 08:05] LABS: HEMATOCRIT 30.3 % (42.0-52.0); MEAN CELL VOLUME 89.9 fL (80.0-105.0); MEAN CORPUSCULAR HEMOGLOBIN 29.7 pg (25.0-35.0); MEAN PLATELET VOLUME 10.1 fl (7.0-11.0); RED CELL DISTRIBUTION WIDTH 13.6 % (11.5-14.5)
[2016-09-16 08:11] LABS: ALKALINE PHOSPHATASE 108 U/L (38-133); ALT/SGPT 44 U/L (7-56); AST/SGOT 51 U/L (15-59); BILIRUBIN,TOTAL 0.6 mg/dL (0.2-1.3); BLOOD UREA NITROGEN 8 mg/dL (7-21); CALCIUM 8.1 mg/dL (8.4-10.5); CARBON DIOXIDE 24 mmol/L (21-33); CHLORIDE 105 mmol/L (98-107); GFR AFRICAN-AMERICAN > 60; GLUCOSE,RANDOM 203 mg/dL (70-110); POTASSIUM 3.7 mmol/L (3.6-5.0); SODIUM 134 mmol/L (132-148); TOTAL PROTEIN 5.9 g/dL (5.8-8.3)
[2016-09-16] MEDS: Sodium Chloride 0.9% 1,000 ML IV SCH ×2 (08:17→12:26)
[2016-09-16] MEDS: Insulin Lispro (humaLOG) LOW Coverage SC SCH ×4 (08:23→23:34)
[2016-09-16] MEDS: Vancomycin 1gm in NS 250ml 1 GM/250 ML BAG IVPB SCH ×2 (08:23→20:19)
[2016-09-16] MEDS ORDERED: Bacitracin 500 Units/gm Oint Foilpak UD TOP ONE (08:48)
--- NOTE | 2016-09-16 08:48 | CP.PCM.PN ---
Subjective - Date & Time of Evaluation Date of Evaluation: 09/16/16 Time of Evaluation: 08:45 - Subjective Subjective: SPINE - POD #2 Pt resting in bed. Appears comfortable. Complains of numbness in bilat little fingers. Voiding on own. + flatus. Taking po. VSS. Afebrile. Dressing dry and intact. Moving all extremities. Neuro intact. + bilat Tinel's at cubital tunnels. Plan: Mobilize w PT. Encouraged pt not to rest w elbows flexed. Objective - Vital Signs/Intake and Output Vital Signs (last 24 hours): Temp Pulse Resp BP Pulse Ox 97.9 F 67 20 134/75 97 09/16/16 07:30 09/16/16 07:30 09/16/16 07:30 09/16/16 07:30 09/16/16 07:30 Intake and Output: 09/16/16 09/16/16 06:59 18:59 Intake Total 5506 Output Total 1700 Balance 3806 - Medications Medications: Current Medications Atorvastatin Calcium (Lipitor) 20 mg PO DAILY [facility] Last Admin: 09/15/16 09:32 Dose: 20 mg Dexamethasone (Decadron Inj) 4 mg IVP Q6H [facility] Last Admin: 09/16/16 04:15 Dose: 4 mg Enoxaparin Sodium (Lovenox) 40 mg SC DAILY [facility] PRN Reason: Protocol Last Admin: 09/13/16 15:44 Dose: 40 mg Hydromorphone HCl (Dilaudid) 0.5 mg IVP Q15M PRN PRN Reason: Pain, moderate (4-7) Cefepime HCl (Maxipime 1gm) 1 gm in 100 mls @ 100 mls/hr IVPB Q8 [facility] PRN Reason: Protocol Last Admin: 09/16/16 05:45 Dose: 100 mls/hr Vancomycin HCl (Vancomycin 1gm) 1 gm in 250 mls @ 167 mls/hr IVPB Q12H [facility] PRN Reason: Protocol Last Admin: 09/16/16 08:23 Dose: 167 mls/hr Sodium Chloride (Sodium Chloride 0.9%) 1,000 mls @ 125 mls/hr IV .Q8H [facility] Last Admin: 09/16/16 08:17 Dose: Not Given Hydromorphone HCl (Dilaudid 0.2 Mg/Ml Construction Millwright) 25 mls @ 0 mls/hr IV .Q0M PRN PRN Reason: PER MD ORDER Stop: 09/17/16 20:02 Last Admin: 09/16/16 06:32 Dose: 1 mls/hr Insulin Human Lispro (Humalog Low) 0 units SC ACHS [facility] PRN Reason: Protocol Last Admin: 09/16/16 08:23 Dose: 1 units Ketorolac Tromethamine (Toradol) 30 mg IVP Q8H PRN PRN Reason: Pain, moderate (4-7) Last Admin: 09/16/16 08:25 Dose: 30 mg Morphine Sulfate (Morphine) 2 mg IVP Q4H PRN PRN Reason: Pain, severe (8-10) Last Admin: 09/14/16 09:56 Dose: 2 mg Ondansetron HCl (Zofran Inj) 4 mg IVP Q6H PRN PRN Reason: Nausea/Vomiting Pantoprazole Sodium (Protonix Inj) 40 mg IVP DAILY [facility] Last Admin: 09/15/16 09:32 Dose: 40 mg Simethicone (Mylicon Chew Tab) 80 mg PO HS PRN PRN Reason: GI distress - Labs Labs: 09/16/16 07:54 09/16/16 07:54 PT 12.4 Seconds (9.9-11.8) H 09/14/16 08:00 INR 1.15 (0.93-1.08) H 09/14/16 08:00 APTT 27.6 Seconds (23.7-30.8) 09/14/16 08:00
--- NOTE | 2016-09-16 13:54 | CP.PCM.PN ---
<Ian Chan - Last Filed: 09/16/16 13:51> Subjective - Date & Time of Evaluation Date of Evaluation: 09/16/16 Time of Evaluation: 13:51 - Subjective Subjective: Patient seen at bedside. No acute event overnight. He remains in pain. He continues to use pump regularly. No neurological changes. Bowel and bladder function is intact. Patient will need physical therapy after discharge. Objective - Vital Signs/Intake and Output Vital Signs (last 24 hours): Temp Pulse Resp BP Pulse Ox 97.9 F 67 20 134/75 97 09/16/16 07:30 09/16/16 07:30 09/16/16 07:30 09/16/16 07:30 09/16/16 07:30 Intake and Output: 09/16/16 09/16/16 06:59 18:59 Intake Total 5506 Output Total 1700 Balance 3806 - Medications Medications: Current Medications Atorvastatin Calcium (Lipitor) 20 mg PO DAILY [facility] Last Admin: 09/16/16 11:13 Dose: 20 mg Dexamethasone (Decadron Inj) 4 mg IVP Q6H [facility] Last Admin: 09/16/16 11:13 Dose: 4 mg Enoxaparin Sodium (Lovenox) 40 mg SC DAILY [facility] PRN Reason: Protocol Last Admin: 09/13/16 15:44 Dose: 40 mg Hydromorphone HCl (Dilaudid) 0.5 mg IVP Q15M PRN PRN Reason: Pain, moderate (4-7) Cefepime HCl (Maxipime 1gm) 1 gm in 100 mls @ 100 mls/hr IVPB Q8 [facility] PRN Reason: Protocol Last Admin: 09/16/16 05:45 Dose: 100 mls/hr Vancomycin HCl (Vancomycin 1gm) 1 gm in 250 mls @ 167 mls/hr IVPB Q12H [facility] PRN Reason: Protocol Last Admin: 09/16/16 08:23 Dose: 167 mls/hr Sodium Chloride (Sodium Chloride 0.9%) 1,000 mls @ 125 mls/hr IV .Q8H [facility] Last Admin: 09/16/16 12:26 Dose: 125 mls/hr Hydromorphone HCl (Dilaudid 0.2 Mg/Ml Deblocker) 25 mls @ 0 mls/hr IV .Q0M PRN PRN Reason: PER MD ORDER Stop: 09/17/16 20:02 Last Admin: 09/16/16 06:32 Dose: 1 mls/hr Insulin Human Lispro (Humalog Low) 0 units SC [facility] PRN Reason: Protocol Last Admin: 09/16/16 12:25 Dose: 3 units Ketorolac Tromethamine (Toradol) 30 mg IVP Q8H PRN PRN Reason: Pain, moderate (4-7) Last Admin: 09/16/16 08:25 Dose: 30 mg Morphine Sulfate (Morphine) 2 mg IVP Q4H PRN PRN Reason: Pain, severe (8-10) Last Admin: 09/14/16 09:56 Dose: 2 mg Ondansetron HCl (Zofran Inj) 4 mg IVP Q6H PRN PRN Reason: Nausea/Vomiting Pantoprazole Sodium (Protonix Inj) 40 mg IVP DAILY [facility] Last Admin: 09/16/16 11:13 Dose: 40 mg Simethicone (Mylicon Chew Tab) 80 mg PO HS PRN PRN Reason: GI distress - Labs Labs: 09/16/16 07:54 09/16/16 07:54 PT 12.4 Seconds (9.9-11.8) H 09/14/16 08:00 INR 1.15 (0.93-1.08) H 09/14/16 08:00 APTT 27.6 Seconds (23.7-30.8) 09/14/16 08:00 - Constitutional Appears: Non-toxic, No Acute Distress - Head Exam Head Exam: ATRAUMATIC, NORMOCEPHALIC - Eye Exam Eye Exam: EOMI, PERRL - ENT Exam ENT Exam: Mucous Membranes Moist - Neck Exam Neck Exam: Full ROM, Normal Inspection - Respiratory Exam Respiratory Exam: Clear to Ausculation Bilateral. absent: Rales, Rhonchi, Wheezes - Cardiovascular Exam Cardiovascular Exam: REGULAR RHYTHM, +S1, +S2 - GI/Abdominal Exam GI & Abdominal Exam: Soft, Normal Bowel Sounds. absent: Tenderness - Extremities Exam Extremities Exam: Full ROM, Normal Capillary Refill. absent: Calf Tenderness, Pedal Edema - Neurological Exam Neurological Exam: Alert, Awake, Oriented x3 Neuro motor strength exam: Left Upper Extremity: 5, Right Upper Extremity: 5, Left Lower Extremity: 5, Right Lower Extremity: 5 - Psychiatric Exam Psychiatric exam: Normal Affect, Normal Mood - Skin Skin Exam: Dry, Warm Assessment and Plan - Assessment and Plan (Free Text) Assessment: 46 y/o male with hx IDDM presenting s/p fall with a fracture to T12 vertebrae and compression of cauda equina s/p decompression and fixation T12 to L2. T12 fracture w/ cauda equina compression s/p decpression, internal fixation T12 - L2 POD 2 - PT consulted. OOB and ambulate - continue neurochecks - continue pain management - incentive spirometry Hx substance abuse - rapid HIV due to possible IVDA - negative - counseled on narcotics management DM - SSI - low - holding home PO meds while inpatient - diabetic diet - fingerstick ACHS PPX - lovenox 40mg daily - Protonix 40mg daily <Daphne Reyes - Last Filed: 09/17/16 17:22> Objective - Vital Signs/Intake and Output Vital Signs (last 24 hours): Temp Pulse Resp BP Pulse Ox 97 F L 74 20 125/81 98 09/17/16 16:00 09/17/16 16:00 09/17/16 16:00 09/17/16 16:00 09/17/16 16:00 Intake and Output: 09/17/16 09/17/16 06:59 18:59 Intake Total 5746 960 Output Total 4200 3050 Balance 1546 -2090 - Medications Medications: Current Medications Atorvastatin Calcium (Lipitor) 20 mg PO DAILY [facility] Last Admin: 09/17/16 11:57 Dose: 20 mg Bacitracin (Bacitracin) 0 gm TOP DAILY [facility] Last Admin: 09/17/16 15:39 Dose: 1 applic Dexamethasone (Decadron Inj) 4 mg IVP Q8 [facility] Last Admin: 09/17/16 15:40 Dose: 4 mg Docusate Sodium (Colace) 100 mg PO BID [facility] Last Admin: 09/17/16 11:04 Dose: Not Given Enoxaparin Sodium (Lovenox) 40 mg SC DAILY [facility] PRN Reason: Protocol Last Admin: 09/13/16 15:44 Dose: 40 mg Hydromorphone HCl (Dilaudid) 0.5 mg IVP Q15M PRN PRN Reason: Pain, moderate (4-7) Sodium Chloride (Sodium Chloride 0.9%) 1,000 mls @ 125 mls/hr IV .Q8H [facility] Last Admin: 09/17/16 15:20 Dose: 125 mls/hr Hydromorphone HCl (Dilaudid 0.2 Mg/Ml Deblocker) 25 mls @ 0 mls/hr IV .Q0M PRN PRN Reason: PER MD ORDER Stop: 09/17/16 20:02 Last Admin: 09/17/16 12:00 Dose: 1 mls/hr Insulin Detemir (Levemir) 5 unit SC Q12 [facility] Insulin Human Lispro (Humalog Med) 0 units SC ACHS [facility] PRN Reason: Protocol Last Admin: 09/17/16 16:10 Dose: 5 units Ketorolac Tromethamine (Toradol) 30 mg IVP Q8H PRN PRN Reason: Pain, moderate (4-7) Last Admin: 09/16/16 20:23 Dose: 30 mg Morphine Sulfate (Morphine) 2 mg IVP Q4H PRN PRN Reason: Pain, severe (8-10) Last Admin: 09/14/16 09:56 Dose: 2 mg Ondansetron HCl (Zofran Inj) 4 mg IVP Q6H PRN PRN Reason: Nausea/Vomiting Pantoprazole Sodium (Protonix Inj) 40 mg IVP DAILY [facility] Last Admin: 09/17/16 11:55 Dose: 40 mg Simethicone (Mylicon Chew Tab) 80 mg PO [facility] PRN PRN Reason: GI distress - Labs Labs: 09/17/16 07:28 09/17/16 07:28 PT 12.4 Seconds (9.9-11.8) H 09/14/16 08:00 INR 1.15 (0.93-1.08) H 09/14/16 08:00 APTT 27.6 Seconds (23.7-30.8) 09/14/16 08:00 Attending/Attestation - Attestation I have personally seen and examined this patient.: Yes I have fully participated in the care of the patient.: Yes I have reviewed all pertinent clinical information, including history, physical exam and plan: Yes Notes (Text): I have seen and examined patient at bedside. Agree with the above note with the following additions/ exceptions: Briefly this is 46 year old male with history of IDDM, tobacco use, substance abuse, opioid use who got admitted for evaluation for lower back pain and lower extremity weakness secondary to fall. MRI revealed T12 fracture with compression of the cauda equina. Patient underwent decompression and fusion of T12-L2. 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 Patient complains of numbness and tingling of medial surface of arms and 4th and 5th finger. Cervical MRI was normal. Advised patient not to rest with elbows flexed. Procal negative. Will stop antibiotics. PT recommending SHYAM. UDS showed methadone, opiates, cocaine and BZ. Counselling provided regarding substance abuse. HIV negative. Will continue ISS. HBA1C pending. Discussed in detail with the patients mother. Upon discharge will follow up with PMD of choice. Dr Daphne Reyes
[2016-09-16] MEDS ORDERED: Bacitracin Ointment 30 GM TUBE TOP STA (18:37)
[2016-09-17] MEDS: Sodium Chloride 0.9% 1,000 ML IV SCH ×3 (02:47→15:20)
[2016-09-17] MEDS: Dexamethasone 4 mg/1 ml IVP SCH ×3 (03:47→21:42)
[2016-09-17] MEDS: HYDROmorphone 0.2 mg/ml (25ml) 25 ML IV PRN ×3 (04:33→18:37)
[2016-09-17] MEDS: Cefepime 1gm in NS 100ml 1 GM/100 ML BAG IVPB SCH (05:22)
[2016-09-17 06:49] LABS: ACETONE None Detected; ETHANOL None Detected; ISOPROPANOL None Detected; METHANOL None Detected
--- NOTE | 2016-09-17 07:25 | CP.PCM.PN ---
<Rita Cornejo - Last Filed: 09/17/16 10:49> Subjective - Date & Time of Evaluation Date of Evaluation: 09/17/16 Time of Evaluation: 08:00 - Subjective Subjective: Pt was seen and examined at bedside. 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 Pain is under better control. Pt is tolerating diet, and moving bowels and bladder. Pt was able to sit in chair yesterday. Pt denied any acute complaints at this time. No acute or adverse events overnight. Pt denied fever, chills, sob, chest pains, abdominal pains, n/v/d/c or urinary symptoms. Objective - Vital Signs/Intake and Output Vital Signs (last 24 hours): Temp Pulse Resp BP Pulse Ox 97.6 F 74 20 121/67 97 09/17/16 07:24 09/17/16 07:24 09/17/16 07:24 09/17/16 07:24 09/17/16 07:24 Intake and Output: 09/17/16 09/17/16 06:59 18:59 Intake Total 360 Output Total 2100 Balance -1740 - Medications Medications: Current Medications Atorvastatin Calcium (Lipitor) 20 mg PO DAILY [facility] Last Admin: 09/16/16 11:13 Dose: 20 mg Bacitracin (Bacitracin) 0 gm TOP DAILY [facility] Dexamethasone (Decadron Inj) 4 mg IVP Q6H [facility] Last Admin: 09/17/16 03:47 Dose: 4 mg Enoxaparin Sodium (Lovenox) 40 mg SC DAILY [facility] PRN Reason: Protocol Last Admin: 09/13/16 15:44 Dose: 40 mg Hydromorphone HCl (Dilaudid) 0.5 mg IVP Q15M PRN PRN Reason: Pain, moderate (4-7) Cefepime HCl (Maxipime 1gm) 1 gm in 100 mls @ 100 mls/hr IVPB Q8 [facility] PRN Reason: Protocol Last Admin: 09/17/16 05:22 Dose: 100 mls/hr Vancomycin HCl (Vancomycin 1gm) 1 gm in 250 mls @ 167 mls/hr IVPB Q12H [facility] PRN Reason: Protocol Last Admin: 09/16/16 20:19 Dose: 167 mls/hr Sodium Chloride (Sodium Chloride 0.9%) 1,000 mls @ 125 mls/hr IV .Q8H [facility] Last Admin: 09/17/16 02:47 Dose: Not Given Hydromorphone HCl (Dilaudid 0.2 Mg/Ml High [employer] History Teacher) 25 mls @ 0 mls/hr IV .Q0M PRN PRN Reason: PER MD ORDER Stop: 09/17/16 20:02 Last Admin: 09/17/16 04:33 Dose: 1 mls/hr Insulin Human Lispro (Humalog Low) 0 units SC [facility] PRN Reason: Protocol Last Admin: 09/16/16 23:34 Dose: Not Given Ketorolac Tromethamine (Toradol) 30 mg IVP Q8H PRN PRN Reason: Pain, moderate (4-7) Last Admin: 09/16/16 20:23 Dose: 30 mg Morphine Sulfate (Morphine) 2 mg IVP Q4H PRN PRN Reason: Pain, severe (8-10) Last Admin: 09/14/16 09:56 Dose: 2 mg Ondansetron HCl (Zofran Inj) 4 mg IVP Q6H PRN PRN Reason: Nausea/Vomiting Pantoprazole Sodium (Protonix Inj) 40 mg IVP DAILY [facility] Last Admin: 09/16/16 11:13 Dose: 40 mg Simethicone (Mylicon Chew Tab) 80 mg PO HS PRN PRN Reason: GI distress - Labs Labs: 09/16/16 07:54 09/16/16 07:54 PT 12.4 Seconds (9.9-11.8) H 09/14/16 08:00 INR 1.15 (0.93-1.08) H 09/14/16 08:00 APTT 27.6 Seconds (23.7-30.8) 09/14/16 08:00 - Constitutional Appears: Well, No Acute Distress - Head Exam Head Exam: ATRAUMATIC, NORMAL INSPECTION, NORMOCEPHALIC - Eye Exam Eye Exam: EOMI, Normal appearance, PERRL - ENT Exam ENT Exam: Mucous Membranes Moist, Normal Exam - Neck Exam Neck Exam: Full ROM, Normal Inspection. absent: Lymphadenopathy - Respiratory Exam Respiratory Exam: Clear to Ausculation Bilateral, NORMAL BREATHING PATTERN - Cardiovascular Exam Cardiovascular Exam: REGULAR RHYTHM, +S1, +S2. absent: Murmur - GI/Abdominal Exam GI & Abdominal Exam: Soft, Normal Bowel Sounds. absent: Tenderness - Extremities Exam Extremities Exam: Full ROM, Normal Capillary Refill, Normal Inspection. absent : Joint Swelling, Pedal Edema - Back Exam Back Exam: NORMAL INSPECTION - Neurological Exam Neurological Exam: Alert, Awake, CN II-XII Intact, Normal Gait, Oriented x3 - Psychiatric Exam Psychiatric exam: Normal Affect, Normal Mood - Skin Skin Exam: Dry, Intact, Normal Color, Warm Assessment and Plan - Assessment and Plan (Free Text) Assessment: 46 y/o male with hx IDDM presenting s/p fall with a fracture to T12 vertebrae and compression of cauda equina s/p decompression and fixation T12 to L2. T12 fracture w/ cauda equina compression s/p decpression, internal fixation T12 - L2 POD# 3 - Neurosurgery Consulted, Dr. Azar - PT consulted. OOB and ambulate - continue neurochecks - continue pain management - incentive spirometry at bedisde and encouraged - decadron 4mg q8, will continue to taper 4mg q12 tomorrow. Hx substance abuse - rapid HIV due to possible IVDA - negative - counseled on narcotics management DM - SSI - low - holding home PO meds while inpatient - diabetic diet - fingerstick ACHS PPX - lovenox 40mg daily - Protonix 40mg daily <Daphne Reyes - Last Filed: 09/17/16 17:25> Objective - Vital Signs/Intake and Output Vital Signs (last 24 hours): Temp Pulse Resp BP Pulse Ox 97 F L 74 20 125/81 98 09/17/16 16:00 09/17/16 16:00 09/17/16 16:00 09/17/16 16:00 09/17/16 16:00 Intake and Output: 09/17/16 09/17/16 06:59 18:59 Intake Total 5746 960 Output Total 4200 3050 Balance 1546 -2090 - Medications Medications: Current Medications Atorvastatin Calcium (Lipitor) 20 mg PO DAILY [facility] Last Admin: 09/17/16 11:57 Dose: 20 mg Bacitracin (Bacitracin) 0 gm TOP DAILY [facility] Last Admin: 09/17/16 15:39 Dose: 1 applic Dexamethasone (Decadron Inj) 4 mg IVP Q8 [facility] Last Admin: 09/17/16 15:40 Dose: 4 mg Docusate Sodium (Colace) 100 mg PO BID [facility] Last Admin: 09/17/16 11:04 Dose: Not Given Enoxaparin Sodium (Lovenox) 40 mg SC DAILY [facility] PRN Reason: Protocol Last Admin: 09/13/16 15:44 Dose: 40 mg Hydromorphone HCl (Dilaudid) 0.5 mg IVP Q15M PRN PRN Reason: Pain, moderate (4-7) Sodium Chloride (Sodium Chloride 0.9%) 1,000 mls @ 125 mls/hr IV .Q8H [facility] Last Admin: 09/17/16 15:20 Dose: 125 mls/hr Hydromorphone HCl (Dilaudid 0.2 Mg/Ml [employer] Teacher) 25 mls @ 0 mls/hr IV .Q0M PRN PRN Reason: PER MD ORDER Stop: 09/17/16 20:02 Last Admin: 09/17/16 12:00 Dose: 1 mls/hr Insulin Detemir (Levemir) 5 unit SC Q12 [facility] Insulin Human Lispro (Humalog Med) 0 units SC [facility] PRN Reason: Protocol Last Admin: 09/17/16 16:10 Dose: 5 units Ketorolac Tromethamine (Toradol) 30 mg IVP Q8H PRN PRN Reason: Pain, moderate (4-7) Last Admin: 09/16/16 20:23 Dose: 30 mg Morphine Sulfate (Morphine) 2 mg IVP Q4H PRN PRN Reason: Pain, severe (8-10) Last Admin: 09/14/16 09:56 Dose: 2 mg Ondansetron HCl (Zofran Inj) 4 mg IVP Q6H PRN PRN Reason: Nausea/Vomiting Pantoprazole Sodium (Protonix Inj) 40 mg IVP DAILY [facility] Last Admin: 09/17/16 11:55 Dose: 40 mg Simethicone (Mylicon Chew Tab) 80 mg PO HS PRN PRN Reason: GI distress - Labs Labs: 09/17/16 07:28 09/17/16 07:28 PT 12.4 Seconds (9.9-11.8) H 09/14/16 08:00 INR 1.15 (0.93-1.08) H 09/14/16 08:00 APTT 27.6 Seconds (23.7-30.8) 09/14/16 08:00 Attending/Attestation - Attestation I have personally seen and examined this patient.: Yes I have fully participated in the care of the patient.: Yes I have reviewed all pertinent clinical information, including history, physical exam and plan: Yes Notes (Text): I have seen and examined patient at bedside. Agree with the above note with the following additions/ exceptions: Briefly this is 46 year old male with history of IDDM, tobacco use, substance abuse, opioid use who got admitted for evaluation for lower back pain and lower extremity weakness secondary to fall. MRI revealed T12 fracture with compression of the cauda equina. Patient underwent decompression and fusion of T12-L2. 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 Patient reports slight improvement in numbness and tingling of medial surface of arms and 4th and 5th finger. Cervical MRI was normal. Advised patient not to rest with elbows flexed. Procal negative. Antibiotics stopped. All cultures negative. Will taper decardon. PT recommending SHYAM. UDS showed methadone, opiates, cocaine and BZ. Counselling provided regarding substance abuse. HIV negative. Will continue ISS and start levemir 5 q12. HBA1C 6.1. Discussed in detail with the patients mother. Upon discharge will follow up with PMD of choice. Dr Daphne Reyes
[2016-09-17 07:54] LABS: ALKALINE PHOSPHATASE 112 U/L (38-133); ALT/SGPT 41 U/L (7-56); AST/SGOT 42 U/L (15-59); BILIRUBIN,TOTAL 0.6 mg/dL (0.2-1.3); BLOOD UREA NITROGEN 12 mg/dL (7-21); CARBON DIOXIDE 21 mmol/L (21-33); CHLORIDE 105 mmol/L (95-110); GFR AFRICAN-AMERICAN > 60; GLUCOSE,RANDOM 221 mg/dL (70-110); POTASSIUM 4.1 mmol/L (3.6-5.0); SODIUM 133 mmol/L (132-148); TOTAL PROTEIN 6.3 g/dL (5.8-8.3)
[2016-09-17 09:15] LABS: HEMATOCRIT 30.8 % (42.0-52.0); MEAN CELL VOLUME 88.3 fL (80.0-105.0); MEAN CORPUSCULAR HEMOGLOBIN 30.1 pg (25.0-35.0); MEAN CORPUSCULAR HGB CONC 34.1 g/dl (31.0-37.0); MEAN PLATELET VOLUME 10.4 fl (7.0-11.0); RED CELL DISTRIBUTION WIDTH 13.4 % (11.5-14.5); WHITE BLOOD COUNT 13.4 10^3/ul (4.5-11.0)
[2016-09-17] MEDS: Insulin Lispro (humaLOG) MEDIUM Coverage SC SCH ×3 (11:56→21:42)
[2016-09-17] MEDS: Bacitracin Ointment 30 GM TUBE TOP SCH (15:39)
[2016-09-17] MEDS: Insulin Detemir 100 units/ml Vial (Levemir) SC SCH (21:42)
[2016-09-17] MEDS: Morphine 2 mg/ml ISec IVP PRN (23:04)
[2016-09-17] MEDS ORDERED: DiphenhydrAMINE 50 mg/ml Inj IVP STA (23:09)
[2016-09-18] MEDS: HYDROmorphone 0.2 mg/ml (25ml) 25 ML IV PRN ×2 (00:48→07:23)
[2016-09-18] MEDS: Dexamethasone 4 mg/1 ml IVP SCH ×3 (05:33→21:27)
[2016-09-18] MEDS: Morphine 2 mg/ml ISec IVP PRN (05:38)
[2016-09-18] MEDS: Insulin Lispro (humaLOG) MEDIUM Coverage SC SCH ×4 (08:42→21:43)
[2016-09-18] MEDS: Pantoprazole 40 mg EC Tab PO SCH (08:43)
--- NOTE | 2016-09-18 09:32 | CP.PCM.PN ---
<Rita Cornejo - Last Filed: 09/18/16 14:36> Subjective - Date & Time of Evaluation Date of Evaluation: 09/18/16 Time of Evaluation: 07:40 - Subjective Subjective: Pt was seen and examined at bedside. Pt has mild complaints of back pain this morning. Pt has been ambulating with PT and tolerating getting OOB with assistance. Pt states he had a bm yesterday and has been voiding regularly. He also is tolerating diet. Pt denied fever, chills, sob, chest pains, abdominal pains, n/v/d/c or urinary symptoms. Objective - Vital Signs/Intake and Output Vital Signs (last 24 hours): Temp Pulse Resp BP Pulse Ox 98.4 F 71 20 141/78 98 09/18/16 07:26 09/18/16 07:26 09/18/16 07:26 09/18/16 07:26 09/18/16 07:26 Intake and Output: 09/18/16 09/18/16 06:59 18:59 Intake Total 3200 Output Total 1500 Balance 1700 - Medications Medications: Current Medications Atorvastatin Calcium (Lipitor) 20 mg PO DAILY [facility] Last Admin: 09/17/16 11:57 Dose: 20 mg Bacitracin (Bacitracin) 0 gm TOP DAILY [facility] Last Admin: 09/17/16 15:39 Dose: 1 applic Dexamethasone (Decadron Inj) 2 mg IVP Q12 [facility] Docusate Sodium (Colace) 100 mg PO BID [facility] Last Admin: 09/17/16 17:24 Dose: Not Given Enoxaparin Sodium (Lovenox) 40 mg SC DAILY [facility] PRN Reason: Protocol Last Admin: 09/13/16 15:44 Dose: 40 mg Hydromorphone HCl (Dilaudid) 0.5 mg IVP Q15M PRN PRN Reason: Pain, moderate (4-7) Sodium Chloride (Sodium Chloride 0.9%) 1,000 mls @ 125 mls/hr IV .Q8H [facility] Last Admin: 09/17/16 15:20 Dose: 125 mls/hr Hydromorphone HCl (Dilaudid 0.2 Mg/Ml Oyster Floater) 25 mls @ 0 mls/hr IV .Q0M PRN PRN Reason: PER MD ORDER Last Admin: 09/18/16 07:23 Dose: 1 mls/hr Insulin Detemir (Levemir) 5 unit SC Q12 [facility] Last Admin: 09/17/16 21:42 Dose: 5 unit Insulin Human Lispro (Humalog Med) 0 units SC [facility] PRN Reason: Protocol Last Admin: 09/18/16 08:42 Dose: 5 units Ketorolac Tromethamine (Toradol) 30 mg IVP Q8H PRN PRN Reason: Pain, moderate (4-7) Last Admin: 09/16/16 20:23 Dose: 30 mg Morphine Sulfate (Morphine) 2 mg IVP Q4H PRN PRN Reason: Pain, severe (8-10) Last Admin: 09/18/16 05:38 Dose: 2 mg Ondansetron HCl (Zofran Inj) 4 mg IVP Q6H PRN PRN Reason: Nausea/Vomiting Pantoprazole Sodium (Protonix Ec Tab) 40 mg PO ACB [facility] Last Admin: 09/18/16 08:43 Dose: 40 mg Simethicone (Mylicon Chew Tab) 80 mg PO HS PRN PRN Reason: GI distress - Labs Labs: 09/17/16 07:28 09/17/16 07:28 PT 12.4 Seconds (9.9-11.8) H 09/14/16 08:00 INR 1.15 (0.93-1.08) H 09/14/16 08:00 APTT 27.6 Seconds (23.7-30.8) 09/14/16 08:00 - Constitutional Appears: No Acute Distress - Head Exam Head Exam: ATRAUMATIC, NORMAL INSPECTION, NORMOCEPHALIC - Eye Exam Eye Exam: EOMI, Normal appearance, PERRL Pupil Exam: NORMAL ACCOMODATION, PERRL - ENT Exam ENT Exam: Mucous Membranes Moist, Normal Exam - Neck Exam Neck Exam: Full ROM, Normal Inspection. absent: Lymphadenopathy - Respiratory Exam Respiratory Exam: Clear to Ausculation Bilateral, NORMAL BREATHING PATTERN - Cardiovascular Exam Cardiovascular Exam: REGULAR RHYTHM, +S1, +S2. absent: Murmur - GI/Abdominal Exam GI & Abdominal Exam: Soft, Normal Bowel Sounds. absent: Tenderness - Extremities Exam Extremities Exam: Full ROM, Normal Capillary Refill, Normal Inspection. absent : Joint Swelling, Pedal Edema - Back Exam Additional comments: Midline incision with cheryle, dressed no signs of infx - Neurological Exam Neurological Exam: Alert, Awake, CN II-XII Intact, Oriented x3 - Psychiatric Exam Psychiatric exam: Normal Affect, Normal Mood - Skin Skin Exam: Dry, Intact, Normal Color, Warm Assessment and Plan - Assessment and Plan (Free Text) Assessment: 46 y/o male with hx IDDM presenting s/p fall with a fracture to T12 vertebrae and compression of cauda equina s/p decompression and fixation T12 to L2. T12 fracture w/ cauda equina compression s/p decpression, internal fixation T12 - L2 POD# 43 - Neurosurgery Consulted, Dr. Azar - PT consulted. 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 Switch to percocet and oxycontin - incentive spirometry at bedisde and encouraged - decadron 2mg q12 tapering down Hx substance abuse - rapid HIV due to possible IVDA - negative - counseled on narcotics management DM - SSI - low - holding home PO meds while inpatient - diabetic diet - fingerstick ACHS PPX - lovenox 40mg daily - Protonix 40mg daily As per CM, pt will be dc to mother's home as pt has no insurance for rehab placement. <Daphne Reyes - Last Filed: 09/18/16 15:25> Objective - Vital Signs/Intake and Output Vital Signs (last 24 hours): Temp Pulse Resp BP Pulse Ox 98.4 F 71 20 141/78 98 09/18/16 07:26 09/18/16 07:26 09/18/16 07:26 09/18/16 07:26 09/18/16 07:26 Intake and Output: 09/18/16 09/18/16 06:59 18:59 Intake Total 3200 Output Total 1500 Balance 1700 - Medications Medications: Current Medications Atorvastatin Calcium (Lipitor) 20 mg PO DAILY [facility] Last Admin: 09/18/16 10:54 Dose: 20 mg Bacitracin (Bacitracin) 0 gm TOP DAILY [facility] Last Admin: 09/18/16 10:52 Dose: 1 applic Dexamethasone (Decadron Inj) 2 mg IVP Q12 [facility] Last Admin: 09/18/16 10:53 Dose: 2 mg Docusate Sodium (Colace) 100 mg PO BID [facility] Last Admin: 09/18/16 10:53 Dose: 100 mg Enoxaparin Sodium (Lovenox) 40 mg SC DAILY [facility] PRN Reason: Protocol Last Admin: 09/13/16 15:44 Dose: 40 mg Sodium Chloride (Sodium Chloride 0.9%) 1,000 mls @ 125 mls/hr IV .Q8H [facility] Last Admin: 09/18/16 14:32 Dose: 125 mls/hr Insulin Detemir (Levemir) 5 unit SC Q12 [facility] Last Admin: 09/18/16 10:54 Dose: 5 unit Insulin Human Lispro (Humalog Med) 0 units SC ACHS [facility] PRN Reason: Protocol Last Admin: 09/18/16 12:12 Dose: 5 units Ketorolac Tromethamine (Toradol) 30 mg IVP Q8H PRN PRN Reason: Pain, moderate (4-7) Last Admin: 09/16/16 20:23 Dose: 30 mg Ondansetron HCl (Zofran Inj) 4 mg IVP Q6H PRN PRN Reason: Nausea/Vomiting Oxycodone HCl (Oxycontin Extended Release Tab) 20 mg PO Q12 [facility] Last Admin: 09/18/16 10:54 Dose: 20 mg Oxycodone/Acetaminophen (Percocet 5/325 Mg Tab) 2 tab PO Q6H PRN PRN Reason: Pain, moderate (4-7) Stop: 09/21/16 10:34 Pantoprazole Sodium (Protonix Ec Tab) 40 mg PO ACB [facility] Last Admin: 09/18/16 08:43 Dose: 40 mg Simethicone (Mylicon Chew Tab) 80 mg PO [facility] PRN PRN Reason: GI distress - Labs Labs: 09/17/16 07:28 09/17/16 07:28 PT 12.4 Seconds (9.9-11.8) H 09/14/16 08:00 INR 1.15 (0.93-1.08) H 09/14/16 08:00 APTT 27.6 Seconds (23.7-30.8) 09/14/16 08:00 Attending/Attestation - Attestation I have personally seen and examined this patient.: Yes I have fully participated in the care of the patient.: Yes I have reviewed all pertinent clinical information, including history, physical exam and plan: Yes Notes (Text): I have seen and examined patient at bedside. Agree with the above note with the following additions/ exceptions: Briefly this is 46 year old male with history of IDDM, tobacco use, substance abuse, opioid use who got admitted for evaluation for lower back pain and lower extremity weakness secondary to fall. MRI revealed T12 fracture with compression of the cauda equina. Patient underwent decompression and fusion of T12-L2. 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 Discussed with Dr Azar. Plan to dc dilaudid and start po oxycontin and percocet prn. Patient reports slight improvement in numbness and tingling of medial surface of arms and 4th and 5th finger. Cervical MRI was normal. Advised patient not to rest with elbows flexed. Procal negative. Antibiotics stopped. All cultures negative. Will taper decardon. PT recommending SHYAM. UDS showed methadone, opiates, cocaine and BZ. Counselling provided regarding substance abuse. HIV negative. Will continue ISS and increase levemir 5 q12. HBA1C 6.1. Discussed in detail with the patients mother. Upon discharge will follow up with PMD of choice. Dr Daphne Reyes
--- NOTE | 2016-09-18 10:32 | CP.PCM.PN ---
Subjective - Date & Time of Evaluation Date of Evaluation: 09/18/16 Time of Evaluation: 10:28 - Subjective Subjective: SPINE - POD #4 Pt resting in bed. Emphasized to pt need to be OOB and ambulatory. Complains of pain at surg site. Afebrile. VSS. Incision clean and dry (as per Nursing who just changed dressing) . Moving all extremities actively. Neuro intact. 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 Oral analgesics. Cont with therapy. Pt will going to mother's house in [place] as she can keep him on one floor with no stairs. Has no insurance for acute rehab placement. Objective - Vital Signs/Intake and Output Vital Signs (last 24 hours): Temp Pulse Resp BP Pulse Ox 98.4 F 71 20 141/78 98 09/18/16 07:26 09/18/16 07:26 09/18/16 07:26 09/18/16 07:26 09/18/16 07:26 Intake and Output: 09/18/16 09/18/16 06:59 18:59 Intake Total 3200 Output Total 1500 Balance 1700 - Medications Medications: Current Medications Atorvastatin Calcium (Lipitor) 20 mg PO DAILY [facility] Last Admin: 09/17/16 11:57 Dose: 20 mg Bacitracin (Bacitracin) 0 gm TOP DAILY [facility] Last Admin: 09/17/16 15:39 Dose: 1 applic Dexamethasone (Decadron Inj) 2 mg IVP Q12 [facility] Docusate Sodium (Colace) 100 mg PO BID [facility] Last Admin: 09/17/16 17:24 Dose: Not Given Enoxaparin Sodium (Lovenox) 40 mg SC DAILY [facility] PRN Reason: Protocol Last Admin: 09/13/16 15:44 Dose: 40 mg Hydromorphone HCl (Dilaudid) 0.5 mg IVP Q15M PRN PRN Reason: Pain, moderate (4-7) Sodium Chloride (Sodium Chloride 0.9%) 1,000 mls @ 125 mls/hr IV .Q8H [facility] Last Admin: 09/17/16 15:20 Dose: 125 mls/hr Hydromorphone HCl (Dilaudid 0.2 Mg/Ml Web Applications Programmer) 25 mls @ 0 mls/hr IV .Q0M PRN PRN Reason: PER MD ORDER Last Admin: 09/18/16 07:23 Dose: 1 mls/hr Insulin Detemir (Levemir) 5 unit SC Q12 [facility] Last Admin: 09/17/16 21:42 Dose: 5 unit Insulin Human Lispro (Humalog Med) 0 units SC ACHS JOSIAN[facility] PRN Reason: Protocol Last Admin: 09/18/16 08:42 Dose: 5 units Ketorolac Tromethamine (Toradol) 30 mg IVP Q8H PRN PRN Reason: Pain, moderate (4-7) Last Admin: 09/16/16 20:23 Dose: 30 mg Ondansetron HCl (Zofran Inj) 4 mg IVP Q6H PRN PRN Reason: Nausea/Vomiting Pantoprazole Sodium (Protonix Ec Tab) 40 mg PO ACB [facility] Last Admin: 09/18/16 08:43 Dose: 40 mg Simethicone (Mylicon Chew Tab) 80 mg PO PCHS PRN PRN Reason: GI distress - Labs Labs: 09/17/16 07:28 09/17/16 07:28 PT 12.4 Seconds (9.9-11.8) H 09/14/16 08:00 INR 1.15 (0.93-1.08) H 09/14/16 08:00 APTT 27.6 Seconds (23.7-30.8) 09/14/16 08:00
[2016-09-18] MEDS: Bacitracin Ointment 30 GM TUBE TOP SCH (10:52)
[2016-09-18] MEDS: Insulin Detemir 100 units/ml Vial (Levemir) SC SCH ×2 (10:54→21:27)
[2016-09-18] MEDS: oxyCODONE 20 mg ER Tab (oxyCONTIN) PO SCH ×2 (10:54→21:28)
[2016-09-18] MEDS: Sodium Chloride 0.9% 1,000 ML IV SCH (14:32)
[2016-09-18] MEDS: Oxycodone/Acetaminophen 5/325 mg Tab PO PRN ×2 (16:41→22:43)
[2016-09-19] MEDS: Sodium Chloride 0.9% 1,000 ML IV SCH (04:57)
[2016-09-19] MEDS: Oxycodone/Acetaminophen 5/325 mg Tab PO PRN ×3 (06:14→18:57)
[2016-09-19] MEDS: Pantoprazole 40 mg EC Tab PO SCH (08:23)
[2016-09-19] MEDS: Insulin Lispro (humaLOG) MEDIUM Coverage SC SCH ×4 (08:24→21:49)
[2016-09-19] MEDS: Dexamethasone 4 mg/1 ml IVP SCH ×2 (10:38→13:50)
[2016-09-19] MEDS: oxyCODONE 20 mg ER Tab (oxyCONTIN) PO SCH ×2 (10:39→21:53)
[2016-09-19] MEDS: Insulin Detemir 100 units/ml Vial (Levemir) SC SCH ×2 (10:39→21:51)
--- NOTE | 2016-09-19 12:31 | CP.PCM.PN ---
<Rita Cornejo - Last Filed: 09/19/16 12:42> Subjective - Date & Time of Evaluation Date of Evaluation: 09/19/16 Time of Evaluation: 09:00 - Subjective Subjective: Pt was seen and examined at bedside. Pt has mild complaints of back pain. As per nursing staff, pt has had moments of unusual behavior. Pt most recently pulled out his IV access, as per nursing staff. Pt is ambulating with rolling walker with PT, pt is toelrating diet and moving his bowels and bladder. Pt denied fever, chills, sob, chest pains, abdominal pains, n/v/d/c or urinary symptoms. Objective - Vital Signs/Intake and Output Vital Signs (last 24 hours): Temp Pulse Resp BP Pulse Ox 98.0 F 67 20 107/65 98 09/19/16 07:30 09/19/16 07:30 09/19/16 07:30 09/19/16 07:30 09/19/16 07:30 Intake and Output: 09/19/16 09/19/16 06:59 18:59 Intake Total 1080 Balance 1080 - Medications Medications: Current Medications Atorvastatin Calcium (Lipitor) 20 mg PO DAILY [facility] Last Admin: 09/19/16 10:40 Dose: 20 mg Bacitracin (Bacitracin) 0 gm TOP DAILY [facility] Last Admin: 09/18/16 10:52 Dose: 1 applic Dexamethasone (Decadron Inj) 2 mg IVP Q12 [facility] Last Admin: 09/19/16 10:38 Dose: 2 mg Docusate Sodium (Colace) 100 mg PO BID [facility] Last Admin: 09/19/16 09:24 Dose: Not Given Enoxaparin Sodium (Lovenox) 40 mg SC DAILY [facility] PRN Reason: Protocol Last Admin: 09/13/16 15:44 Dose: 40 mg Sodium Chloride (Sodium Chloride 0.9%) 1,000 mls @ 125 mls/hr IV .Q8H [facility] Last Admin: 09/19/16 04:57 Dose: Not Given Insulin Detemir (Levemir) 8 unit SC Q12 [facility] Last Admin: 09/19/16 10:39 Dose: 8 unit Insulin Human Lispro (Humalog Med) 0 units SC ACHS [facility] PRN Reason: Protocol Last Admin: 09/19/16 08:24 Dose: 5 units Ketorolac Tromethamine (Toradol) 30 mg IVP Q8H PRN PRN Reason: Pain, moderate (4-7) Last Admin: 09/16/16 20:23 Dose: 30 mg Ondansetron HCl (Zofran Inj) 4 mg IVP Q6H PRN PRN Reason: Nausea/Vomiting Oxycodone HCl (Oxycontin Extended Release Tab) 20 mg PO Q12 [facility] Last Admin: 09/19/16 10:39 Dose: 20 mg Oxycodone/Acetaminophen (Percocet 5/325 Mg Tab) 2 tab PO Q6H PRN PRN Reason: Pain, moderate (4-7) Stop: 09/21/16 10:34 Last Admin: 09/19/16 06:14 Dose: 2 tab Pantoprazole Sodium (Protonix Ec Tab) 40 mg PO ACB [facility] Last Admin: 09/19/16 08:23 Dose: 40 mg Simethicone (Mylicon Chew Tab) 80 mg PO PCHS PRN PRN Reason: GI distress - Labs Labs: 09/17/16 07:28 09/17/16 07:28 PT 12.4 Seconds (9.9-11.8) H 09/14/16 08:00 INR 1.15 (0.93-1.08) H 09/14/16 08:00 APTT 27.6 Seconds (23.7-30.8) 09/14/16 08:00 - Constitutional Appears: No Acute Distress - Head Exam Head Exam: ATRAUMATIC, NORMAL INSPECTION, NORMOCEPHALIC - Eye Exam Eye Exam: EOMI, Normal appearance, PERRL Pupil Exam: NORMAL ACCOMODATION, PERRL - ENT Exam ENT Exam: Mucous Membranes Moist, Normal Exam - Respiratory Exam Respiratory Exam: Clear to Ausculation Bilateral, NORMAL BREATHING PATTERN - Cardiovascular Exam Cardiovascular Exam: REGULAR RHYTHM, +S1, +S2. absent: Murmur - GI/Abdominal Exam GI & Abdominal Exam: Soft, Normal Bowel Sounds. absent: Tenderness - Extremities Exam Extremities Exam: Full ROM, Normal Capillary Refill, Normal Inspection. absent : Joint Swelling, Pedal Edema - Back Exam Back Exam: NORMAL INSPECTION Additional comments: surgical site dressed cdi, no signs of infx - Neurological Exam Neurological Exam: Alert, Awake, CN II-XII Intact, Normal Gait, Oriented x3 - Psychiatric Exam Psychiatric exam: Normal Affect, Normal Mood - Skin Skin Exam: Dry, Intact, Normal Color, Warm Assessment and Plan - Assessment and Plan (Free Text) Assessment: 46 y/o male with hx IDDM presenting s/p fall with a fracture to T12 vertebrae and compression of cauda equina s/p decompression and fixation T12 to L2. T12 fracture w/ cauda equina compression s/p decpression, internal fixation T12 - L2 POD# 43 - Neurosurgery Consulted, Dr. Azar - PT consulted. OOB and ambulate - continue neurochecks - continue pain management off skin former dilaudid. Switch to percocet and oxycontin - incentive spirometry at bedisde and encouraged - decadron 2mg q12 tapering down Hx substance abuse - rapid HIV due to possible IVDA - negative - counseled on narcotics management DM - SSI - low - holding home PO meds while inpatient - diabetic diet - fingerstick ACHS PPX - lovenox 40mg daily - Protonix 40mg daily As per CM, pt will be dc to mother's home as pt has no insurance for rehab placement. Pending dc instruction from Dr. Azar <Kim NIÑO,[facility] - Last Filed: 09/19/16 13:51> Objective - Vital Signs/Intake and Output Vital Signs (last 24 hours): Temp Pulse Resp BP Pulse Ox 98.0 F 67 20 107/65 98 09/19/16 07:30 09/19/16 07:30 09/19/16 07:30 09/19/16 07:30 09/19/16 07:30 Intake and Output: 09/19/16 09/19/16 06:59 18:59 Intake Total 1080 Balance 1080 - Medications Medications: Current Medications Atorvastatin Calcium (Lipitor) 20 mg PO DAILY [facility] Last Admin: 09/19/16 10:40 Dose: 20 mg Bacitracin (Bacitracin) 0 gm TOP DAILY [facility] Last Admin: 09/18/16 10:52 Dose: 1 applic Dexamethasone (Decadron) 2 mg PO BID [facility] Docusate Sodium (Colace) 100 mg PO BID [facility] Last Admin: 09/19/16 09:24 Dose: Not Given Enoxaparin Sodium (Lovenox) 40 mg SC DAILY [facility] PRN Reason: Protocol Last Admin: 09/13/16 15:44 Dose: 40 mg Sodium Chloride (Sodium Chloride 0.9%) 1,000 mls @ 125 mls/hr IV .Q8H [facility] Last Admin: 09/19/16 04:57 Dose: Not Given Insulin Detemir (Levemir) 16 unit SC Q12 [facility] Insulin Human Lispro (Humalog Med) 0 units SC ACHS [facility] PRN Reason: Protocol Last Admin: 09/19/16 12:19 Dose: 5 units Ketorolac Tromethamine (Toradol) 30 mg IVP Q8H PRN PRN Reason: Pain, moderate (4-7) Last Admin: 09/16/16 20:23 Dose: 30 mg Metformin HCl (Glucophage) 1,000 mg PO DAILY [facility] Ondansetron HCl (Zofran Inj) 4 mg IVP Q6H PRN PRN Reason: Nausea/Vomiting Oxycodone HCl (Oxycontin Extended Release Tab) 20 mg PO Q12 [facility] Last Admin: 09/19/16 10:39 Dose: 20 mg Oxycodone/Acetaminophen (Percocet 5/325 Mg Tab) 2 tab PO Q6H PRN PRN Reason: Pain, moderate (4-7) Stop: 09/21/16 10:34 Last Admin: 09/19/16 12:25 Dose: 2 tab Pantoprazole Sodium (Protonix Ec Tab) 40 mg PO ACB [facility] Last Admin: 09/19/16 08:23 Dose: 40 mg Simethicone (Mylicon Chew Tab) 80 mg PO PCHS PRN PRN Reason: GI distress - Labs Labs: 09/17/16 07:28 09/17/16 07:28 PT 12.4 Seconds (9.9-11.8) H 09/14/16 08:00 INR 1.15 (0.93-1.08) H 09/14/16 08:00 APTT 27.6 Seconds (23.7-30.8) 09/14/16 08:00 Attending/Attestation - Attestation I have personally seen and examined this patient.: Yes I have fully participated in the care of the patient.: Yes I have reviewed all pertinent clinical information, including history, physical exam and plan: Yes Notes (Text): 09/19/16 13:47 Patient was seen and examined with medical sales specialist .Agreed with resident assessment and plan. Patient WBC count is high due to steroid.Patient dexamethasone will be switched to oral. Patient is noticed to have psychosis on the floor, patient is not agitated, or combative, no sign of infection, has history of drug abuse,we will monitor and also will get Psychiatric evaluation. Management plan was discussed in detail with patient mother who was at bed side. Education was provided
[2016-09-19] MEDS ORDERED: INSULIN GLARGINE HUM REC ANLOG 32 UNIT PO SCH (12:45)
[2016-09-19] MEDS: Bacitracin Ointment 30 GM TUBE TOP SCH (17:55)
[2016-09-20] MEDS: Oxycodone/Acetaminophen 5/325 mg Tab PO PRN ×3 (02:38→21:55)
[2016-09-20 07:28] LABS: ADD MANUAL DIFF? NO
[2016-09-20 07:41] LABS: BASO # 0.02 K/mm3 (0.0-2.0); BASO % 0.1 % (0.0-3.0); EOS # 0.2 (0.0-0.7); GRAN # 9.95 (1.4-6.5); GRAN % 65.1 % (50.0-68.0); HEMATOCRIT 35.1 % (42.0-52.0); LYMPH # 3.9 (1.2-3.4); LYMPH % 25.8 % (22.0-35.0); MEAN CELL VOLUME 87.3 fL (80.0-105.0); MEAN CORPUSCULAR HEMOGLOBIN 30.1 pg (25.0-35.0); MEAN CORPUSCULAR HGB CONC 34.5 g/dl (31.0-37.0); MONO # 1.2 (0.1-0.6); PLATELET COUNT 345 10^3/uL (120.0-450.0); RED CELL DISTRIBUTION WIDTH 13.7 % (11.5-14.5); WHITE BLOOD COUNT 15.3 10^3/ul (4.5-11.0)
[2016-09-20 07:43] LABS: ALKALINE PHOSPHATASE 147 U/L (38-133); ALT/SGPT 66 U/L (7-56); AST/SGOT 33 U/L (15-59); BILIRUBIN,TOTAL 0.6 mg/dL (0.2-1.3); BLOOD UREA NITROGEN 14 mg/dL (7-21); CALCIUM 8.9 mg/dL (8.4-10.5); CARBON DIOXIDE 25 mmol/L (21-33); CHLORIDE 101 mmol/L (95-110); GFR AFRICAN-AMERICAN > 60; GLUCOSE,RANDOM 220 mg/dL (70-110); POTASSIUM 3.9 mmol/L (3.6-5.0); SODIUM 136 mmol/L (132-148)
[2016-09-20] MEDS: Pantoprazole 40 mg EC Tab PO SCH (08:18)
[2016-09-20] MEDS: Insulin Lispro (humaLOG) MEDIUM Coverage SC SCH ×4 (08:18→21:38)
[2016-09-20] MEDS: Bacitracin Ointment 30 GM TUBE TOP SCH (09:55)
[2016-09-20] MEDS: Insulin Detemir 100 units/ml Vial (Levemir) SC SCH (09:56)
[2016-09-20] MEDS: oxyCODONE 20 mg ER Tab (oxyCONTIN) PO SCH ×2 (09:57→21:39)
--- NOTE | 2016-09-20 14:36 | CP.PCM.PN ---
<Rita Cornejo - Last Filed: 09/20/16 15:36> Subjective - Date & Time of Evaluation Date of Evaluation: 09/20/16 Time of Evaluation: 10:00 - Subjective Subjective: Pt was seen and examined in chair. Pt is tolerating PT well. Pt has mild complaints of back pain. Pt otherwise has no acute complaints. As per nurse, Pt has episodes of odd behavior that have continued last night and today as per nursing staff. Pt urinated on the floor overnight and soiled himself in bed today. Pt states he isnt able to make it to the restroom on time. Pt denied fever, chills, sob, chest pains, abdominal pains, n/v/c. Pt has had 2-3 loose bm. Objective - Vital Signs/Intake and Output Vital Signs (last 24 hours): Temp Pulse Resp BP Pulse Ox 98 F 67 20 106/56 L 100 09/20/16 09:11 09/20/16 09:11 09/20/16 09:11 09/20/16 09:11 09/20/16 09:11 Intake and Output: 09/20/16 09/20/16 06:59 18:59 Intake Total 1560 400 Output Total 300 Balance 1560 100 - Medications Medications: Current Medications Atorvastatin Calcium (Lipitor) 20 mg PO DAILY [facility] Last Admin: 09/19/16 10:40 Dose: 20 mg Bacitracin (Bacitracin) 0 gm TOP DAILY [facility] Last Admin: 09/20/16 09:55 Dose: 1 applic Dexamethasone (Decadron) 2 mg PO BRKDIN [facility] Last Admin: 09/20/16 08:18 Dose: 2 mg Docusate Sodium (Colace) 100 mg PO BID [facility] Last Admin: 09/20/16 09:55 Dose: 100 mg Enoxaparin Sodium (Lovenox) 40 mg SC DAILY [facility] PRN Reason: Protocol Last Admin: 09/13/16 15:44 Dose: 40 mg Sodium Chloride (Sodium Chloride 0.9%) 1,000 mls @ 125 mls/hr IV .Q8H [facility] Last Admin: 09/19/16 04:57 Dose: Not Given Insulin Detemir (Levemir) 16 unit SC Q12 [facility] Last Admin: 09/20/16 09:56 Dose: 16 unit Insulin Human Lispro (Humalog Med) 0 units SC ACHS [facility] PRN Reason: Protocol Last Admin: 09/20/16 12:39 Dose: 5 units Ketorolac Tromethamine (Toradol) 30 mg IVP Q8H PRN PRN Reason: Pain, moderate (4-7) Last Admin: 09/16/16 20:23 Dose: 30 mg Metformin HCl (Glucophage) 1,000 mg PO DAILY [facility] Last Admin: 09/20/16 09:56 Dose: 1,000 mg Ondansetron HCl (Zofran Inj) 4 mg IVP Q6H PRN PRN Reason: Nausea/Vomiting Oxycodone HCl (Oxycontin Extended Release Tab) 20 mg PO Q12 [facility] Last Admin: 09/20/16 09:57 Dose: 20 mg Oxycodone/Acetaminophen (Percocet 5/325 Mg Tab) 2 tab PO Q6H PRN PRN Reason: Pain, moderate (4-7) Stop: 09/21/16 10:34 Last Admin: 09/20/16 02:38 Dose: 2 tab Pantoprazole Sodium (Protonix Ec Tab) 40 mg PO ACB [facility] Last Admin: 09/20/16 08:18 Dose: 40 mg Simethicone (Mylicon Chew Tab) 80 mg PO PCHS PRN PRN Reason: GI distress - Labs Labs: 09/20/16 07:00 09/20/16 07:00 PT 12.4 Seconds (9.9-11.8) H 09/14/16 08:00 INR 1.15 (0.93-1.08) H 09/14/16 08:00 APTT 27.6 Seconds (23.7-30.8) 09/14/16 08:00 - Constitutional Appears: No Acute Distress - Head Exam Head Exam: ATRAUMATIC, NORMAL INSPECTION, NORMOCEPHALIC - Eye Exam Eye Exam: EOMI, Normal appearance, PERRL Pupil Exam: NORMAL ACCOMODATION, PERRL - ENT Exam ENT Exam: Mucous Membranes Moist, Normal Exam - Neck Exam Neck Exam: Full ROM, Normal Inspection. absent: Lymphadenopathy - Respiratory Exam Respiratory Exam: Clear to Ausculation Bilateral, NORMAL BREATHING PATTERN - Cardiovascular Exam Cardiovascular Exam: REGULAR RHYTHM, +S1, +S2. absent: Murmur - GI/Abdominal Exam GI & Abdominal Exam: Soft, Normal Bowel Sounds. absent: Tenderness - Extremities Exam Extremities Exam: Full ROM, Normal Capillary Refill, Normal Inspection. absent : Joint Swelling, Pedal Edema - Back Exam Additional comments: dressing cdi - Neurological Exam Neurological Exam: Alert, Awake, CN II-XII Intact, Normal Gait, Oriented x3 - Psychiatric Exam Psychiatric exam: Normal Affect, Normal Mood - Skin Skin Exam: Dry, Intact, Normal Color, Warm Assessment and Plan - Assessment and Plan (Free Text) Assessment: 46 y/o male with hx IDDM presenting s/p fall with a fracture to T12 vertebrae and compression of cauda equina s/p decompression and fixation T12 to L2. T12 fracture w/ cauda equina compression s/p decpression, internal fixation T12 - L2 POD# 6 - Neurosurgery Consulted, Dr. Azar - PT consulted. OOB and ambulate - continue neurochecks - continue pain management off machine heel builder dilaudid. Switch to percocet and oxycontin - incentive spirometry at bedisde and encouraged - decadron 1.5 mg po q12 tapering down Hx substance abuse - rapid HIV due to possible IVDA - negative - counseled on narcotics management DM - SSI - low - will restart home insulin - diabetic diet - fingerstick ACHS PPX - lovenox 40mg daily - Protonix 40mg daily As per CM, pt will be dc to mother's home as pt has no insurance for rehab placement. Pending dc instruction from Dr. Azar <Kim NIÑO,[facility] - Last Filed: 09/21/16 17:23> Objective - Vital Signs/Intake and Output Vital Signs (last 24 hours): Temp Pulse Resp BP Pulse Ox 98.5 F 64 16 116/62 100 09/21/16 07:30 09/21/16 07:30 09/21/16 07:30 09/21/16 07:30 09/21/16 07:30 Intake and Output: 09/21/16 09/21/16 06:59 18:59 Intake Total 720 Balance 720 - Medications Medications: Current Medications Atorvastatin Calcium (Lipitor) 20 mg PO DAILY [facility] Last Admin: 09/21/16 10:10 Dose: 20 mg Bacitracin (Bacitracin) 0 gm TOP DAILY [facility] Last Admin: 09/21/16 10:15 Dose: 1 applic Dexamethasone (Decadron) 1.5 mg PO BRKDIN [facility] Last Admin: 09/21/16 17:13 Dose: 1.5 mg Docusate Sodium (Colace) 100 mg PO BID [facility] Last Admin: 09/21/16 10:17 Dose: Not Given Enoxaparin Sodium (Lovenox) 40 mg SC DAILY [facility] PRN Reason: Protocol Last Admin: 09/13/16 15:44 Dose: 40 mg Sodium Chloride (Sodium Chloride 0.9%) 1,000 mls @ 125 mls/hr IV .Q8H [facility] Last Admin: 09/21/16 05:19 Dose: Not Given Insulin Detemir (Levemir) 30 unit SC HS [facility] Last Admin: 09/20/16 21:38 Dose: 30 unit Insulin Human Lispro (Humalog Med) 0 units SC ACHS [facility] PRN Reason: Protocol Last Admin: 09/21/16 12:13 Dose: 5 units Metformin HCl (Glucophage) 1,000 mg PO DAILY [facility] Last Admin: 09/21/16 10:14 Dose: 1,000 mg Ondansetron HCl (Zofran Inj) 4 mg IVP Q6H PRN PRN Reason: Nausea/Vomiting Oxycodone HCl (Oxycontin Extended Release Tab) 20 mg PO Q12 [facility] Last Admin: 09/21/16 10:10 Dose: 20 mg Pantoprazole Sodium (Protonix Ec Tab) 40 mg PO ACB [facility] Last Admin: 09/21/16 08:24 Dose: 40 mg Simethicone (Mylicon Chew Tab) 80 mg PO PCHS PRN PRN Reason: GI distress - Labs Labs: 09/21/16 06:30 09/21/16 06:30 PT 12.4 Seconds (9.9-11.8) H 09/14/16 08:00 INR 1.15 (0.93-1.08) H 09/14/16 08:00 APTT 27.6 Seconds (23.7-30.8) 09/14/16 08:00 Attending/Attestation - Attestation I have personally seen and examined this patient.: Yes I have fully participated in the care of the patient.: Yes I have reviewed all pertinent clinical information, including history, physical exam and plan: Yes Notes (Text): 09/21/16 17:23 Patient was seen and examined with medical coding technician .Agreed with resident assessment and plan. Management plan was discussed in detail with patient Education was provided.
[2016-09-20] MEDS: Sodium Chloride 0.9% 1,000 ML IV SCH ×2 (17:23→21:44)
[2016-09-20] MEDS ORDERED: Insulin Detemir 100 units/ml Vial (Levemir) SC SCH (22:00)
[2016-09-21] MEDS: Sodium Chloride 0.9% 1,000 ML IV SCH (05:19)
[2016-09-21] MEDS: Oxycodone/Acetaminophen 5/325 mg Tab PO PRN (05:21)
[2016-09-21 06:55] LABS: ADD MANUAL DIFF? NO
[2016-09-21 07:09] LABS: BASO # 0.02 K/mm3 (0.0-2.0); BASO % 0.1 % (0.0-3.0); EOS # 0.1 (0.0-0.7); GRAN # 8.07 (1.4-6.5); GRAN % 59.5 % (50.0-68.0); HEMATOCRIT 36.3 % (42.0-52.0); LYMPH # 4.1 (1.2-3.4); LYMPH % 30.5 % (22.0-35.0); MEAN CELL VOLUME 87.7 fL (80.0-105.0); MEAN CORPUSCULAR HGB CONC 34.2 g/dl (31.0-37.0); MONO # 1.2 (0.1-0.6); MONO % 8.9 % (1.0-6.0); PLATELET COUNT 345 10^3/uL (120.0-450.0); RED CELL DISTRIBUTION WIDTH 13.7 % (11.5-14.5); WHITE BLOOD COUNT 13.6 10^3/ul (4.5-11.0)
[2016-09-21 07:13] LABS: ALB/GLOB RATIO 1.1 (1.1-1.8); ALKALINE PHOSPHATASE 148 U/L (38-133); ALT/SGPT 63 U/L (7-56); AST/SGOT 32 U/L (15-59); BILIRUBIN,TOTAL 0.7 mg/dL (0.2-1.3); BLOOD UREA NITROGEN 14 mg/dL (7-21); CALCIUM 9.1 mg/dL (8.4-10.5); CARBON DIOXIDE 28 mmol/L (21-33); CHLORIDE 100 mmol/L (98-107); GFR AFRICAN-AMERICAN > 60; GLUCOSE,RANDOM 186 mg/dL (70-110); POTASSIUM 3.9 mmol/L (3.6-5.0); SODIUM 137 mmol/L (132-148); TOTAL PROTEIN 7.4 g/dL (5.8-8.3)
--- NOTE | 2016-09-21 08:23 | CON ---
DATE: 09/20/2016 Shortly, the patient is a 46-year-old male, not known previous psychiatric history, patient denied. The patient was admitted on the medical floor status post fall. The patient had a compress ion fracture of the spine. A psych consult was called for evaluation of "inappropriate behavior and altered mental status." The patient was seen and examined today. The patient presented to be alert and oriented to self, time, and place. The patient is pleasant and cooperative. No behavioral incid ents. The patient reported that the other day he did not have urinal and he wanted to go to the bath room and because he cannot ambulate he used a food tray in order to move his bowels, but medical team interpreted that as inappropriate behavior and playing with his feces. The patient's thought proces ses were well organized. The patient acknowledged that it was inappropriate, but at the same time, koki stanton said that he had no other choice than to do so because he had called for the nurse and nobody could assist him with that. Besides that, the patient denied being depressed, denied thoughts of tawnya suzan himself or others, denied intent or plan. The patient denied hearing voices, denied seeing thin gs, denied paranoid ideation, thought process is very organized and goal directed. The patient was m inimizing his substance abuse. Opioids were positive. Methadone was positive. Benzodiazepines and cocaine were positive in urine drug screen. The patient denied history of mental illness. He denied a history of being evaluated by psychiatrist. He denied history of suicidal attempts. He denied [facility] history of mental illness. VITAL SIGNS: Stable. MEDICATIONS: Reviewed. LABORATORY DATA: Reviewed. The patient has WBC cells 15.3, hemoglobin 12.1, hematocrit 35.1. Coagu lation is reviewed. Chemistry reviewed. Urine reviewed. Toxicology as mentioned above. Collaterals were obtained from the nursing staff, confirmed that story. The patient does not have an y behavioral incidents, compliant with the treatment. No inappropriate behavior. IMPRESSION: Polysubstance abuse, rule out dependence, rule out mood disorder due to general medical condition. PLAN: This policy writer sales could not find pathology besides patient's addiction to the pain killers as well as cocaine positive in urine. The patient was educated about addiction problems. The patient denied being depressed, denied thoughts of harming himself or others. The patient is not confused. This w riter will sign off. Should you have any questions, give me a call back. This policy writer sales discussed this case with . also in agreement to this policy writer sales that patient's mental status is sta ble at the present moment. Thank you very much for letting me participate in the care of your patient. Should you have any ques tions, give me a call back. Chitra Reyes MD cc: [id number] TT: 09/20/2016 18:46:30 Confirmation # [id number] Dictation # [id number] mn
[2016-09-21] MEDS: Pantoprazole 40 mg EC Tab PO SCH (08:24)
[2016-09-21] MEDS: Insulin Lispro (humaLOG) MEDIUM Coverage SC SCH ×2 (08:24→12:13)
[2016-09-21] MEDS: oxyCODONE 20 mg ER Tab (oxyCONTIN) PO SCH (10:10)
[2016-09-21] MEDS: Bacitracin Ointment 30 GM TUBE TOP SCH (10:15)
--- NOTE | 2016-09-21 13:43 | CP.PCM.DIS ---
<Rita Cornejo - Last Filed: 09/21/16 15:18> Provider - Provider Date of Admission: 09/13/16 15:27 Attending physician: Dipika Alvarez MD Primary care physician: NO PRIMARY CARE PROVIDER Consults: Neurosurgery - Dr. Azar Time Spent in preparation of Discharge (in minutes): 45 Hospital Course - Lab Results Lab Results: Micro Results 09/13/16 16:00 Blood Blood Culture - Final NO GROWTH AFTER 5 DAYS 09/13/16 16:00 Blood Gram Stain - Final TEST NOT PERFORMED 09/13/16 15:30 Blood Blood Culture - Final NO GROWTH AFTER 5 DAYS 09/13/16 15:30 Blood Gram Stain - Final TEST NOT PERFORMED 09/13/16 16:27 Urine Urine Culture - Final No Growth (<1,000 CFU/ML) 09/13/16 19:55 Nose MRSA Culture (Admit) - Final MRSA NOT DETECTED Most Recent Lab Values WBC 13.6 10^3/ul (4.5-11.0) H 09/21/16 06:30 RBC 4.14 10^6/uL (3.5-6.1) 09/21/16 06:30 Hgb 12.4 gm/dL (14.0-18.0) L 09/21/16 06:30 Hct 36.3 % (42.0-52.0) L 09/21/16 06:30 MCV 87.7 fL (80.0-105.0) 09/21/16 06:30 MCH 30.0 pg (25.0-35.0) 09/21/16 06:30 MCHC 34.2 g/dl (31.0-37.0) 09/21/16 06:30 RDW 13.7 % (11.5-14.5) 09/21/16 06:30 Plt Count 345 10^3/uL (120.0-450.0) 09/21/16 06:30 MPV 10.0 fl (7.0-11.0) 09/21/16 06:30 Gran % 59.5 % (50.0-68.0) 09/21/16 06:30 Lymph % (Auto) 30.5 % (22.0-35.0) 09/21/16 06:30 [place] % (Auto) 8.9 % (1.0-6.0) H 09/21/16 06:30 Eos % (Auto) 1.0 % (1.5-5.0) L 09/21/16 06:30 Baso % (Auto) 0.1 % (0.0-3.0) 09/21/16 06:30 Gran # 8.07 (1.4-6.5) H 09/21/16 06:30 Lymph # 4.1 (1.2-3.4) H 09/21/16 06:30 Toole # 1.2 (0.1-0.6) H 09/21/16 06:30 Eos # 0.1 (0.0-0.7) 09/21/16 06:30 Baso # 0.02 K/mm3 (0.0-2.0) 09/21/16 06:30 ESR 18 mm/hr (0.0-15.0) H 09/13/16 15:30 PT 12.4 Seconds (9.9-11.8) H 09/14/16 08:00 INR 1.15 (0.93-1.08) H 09/14/16 08:00 APTT 27.6 Seconds (23.7-30.8) 09/14/16 08:00 Sodium 137 mmol/L (132-148) 09/21/16 06:30 Potassium 3.9 mmol/L (3.6-5.0) 09/21/16 06:30 Chloride 100 mmol/L (98-107) 09/21/16 06:30 Carbon Dioxide 28 mmol/L (21-33) 09/21/16 06:30 Anion Gap 13 (10-20) 09/21/16 06:30 BUN 14 mg/dL (7-21) 09/21/16 06:30 Creatinine 0.6 mg/dL (0.5-1.4) 09/21/16 06:30 Est GFR ( Amer) > 60 09/21/16 06:30 Est GFR (Non-Af Amer) > 60 09/21/16 06:30 POC Glucose (mg/dL) 235 mg/dL (65-110) H 09/15/16 16:44 Random Glucose 186 mg/dL (70-110) H 09/21/16 06:30 Hemoglobin A1c 6.3 % (4.2-6.5) 09/14/16 11:00 Calcium 9.1 mg/dL (8.4-10.5) 09/21/16 06:30 Phosphorus 3.0 mg/dL (2.5-4.5) 09/14/16 08:00 Magnesium 2.0 mg/dL (1.7-2.2) 09/14/16 08:00 Total Bilirubin 0.7 mg/dL (0.2-1.3) 09/21/16 06:30 AST 32 U/L (15-59) 09/21/16 06:30 ALT 63 U/L (7-56) H 09/21/16 06:30 Alkaline Phosphatase 148 U/L (38-133) H 09/21/16 06:30 Total Creatine Kinase 332 U/L (35-230) H 09/13/16 15:35 CK-MB (CK-2) 10.5 ng/mL (0.0-3.6) H 09/13/16 15:35 CK-MB (CK-2) % 3.2 % (2.5-3.0) H 09/13/16 15:35 C-React Prot High Sens > 15.00 mg/L (1.00-3.00) H 09/13/16 15:20 Total Protein 7.4 g/dL (5.8-8.3) 09/21/16 06:30 Albumin 3.9 g/dL (3.0-4.8) 09/21/16 06:30 Globulin 3.5 gm/dL 09/21/16 06:30 Albumin/Globulin Ratio 1.1 (1.1-1.8) 09/21/16 06:30 Ethanolamine None detected 09/13/16 15:30 Procalcitonin 0.06 NG/ML (0.19-0.49) L 09/15/16 06:30 Urine Color Yellow (YELLOW) 09/13/16 16:27 Urine Appearance Clear (CLEAR) 09/13/16 16:27 Urine pH 7.0 (4.7-8.0) 09/13/16 16:27 Ur Specific [place] 1.015 (1.005-1.035) 09/13/16 16:27 Urine Protein Negative mg/dL (<30 mg/dL) 09/13/16 16:27 Urine Glucose (UA) Negative mg/dL (NEGATIVE) 09/13/16 16:27 Urine Ketones Negative mg/dL (NEGATIVE) 09/13/16 16:27 Urine Blood Negative (NEGATIVE) 09/13/16 16:27 Urine Nitrate Negative (NEGATIVE) 09/13/16 16:27 Urine Bilirubin Negative (NEGATIVE) 09/13/16 16:27 Urine Urobilinogen 1.0 E.U./dL (<1 E.U./dL) H 09/13/16 16:27 Ur Leukocyte Esterase Negative Chuck/uL (NEGATIVE) 09/13/16 16:27 Urine Opiates Screen Positive (NEGATIVE) H 09/13/16 16:27 Urine Methadone Screen Positive (NEGATIVE) H 09/13/16 16:27 Ur Barbiturates Screen Negative (NEGATIVE) 09/13/16 16:27 Ur Phencyclidine Scrn Negative (NEGATIVE) 09/13/16 16:27 Ur Amphetamines Screen Negative (NEGATIVE) 09/13/16 16:27 U Benzodiazepines Scrn Positive (NEGATIVE) H 09/13/16 16:27 U Oth Cocaine Metabols Positive (NEGATIVE) H 09/13/16 16:27 U Cannabinoids Screen Negative (NEGATIVE) 09/13/16 16:27 Toxicology Panel see note 09/13/16 15:30 Methyl Alcohol Level None detected 09/13/16 15:30 Isopropanol None detected 09/13/16 15:30 Acetone Level None detected 09/13/16 15:30 HIV-1 Ab Rapid Screen Non reactive (NON REAC) 09/13/16 16:00 Blood Type A NEGATIVE 09/13/16 11:35 Blood Type Confirm A NEGATIVE 09/13/16 15:09 Antibody Screen Negative 09/13/16 11:35 BBK History Checked No verified bt 09/13/16 11:35 - Hospital Course Hospital Course: Pt is a 46 y/o male who presented to the ED c/o back pain with b/l LE weakness and pain after falling 3 days prior to admission walking down some stairs. MRI in the ED revealed T12 compression fx with cauda equina compression. Patient was admitted 09/13/16 for a traumatic, unstable spine fracture with some elements of cauda equina syndrome. Patient was started on decadron steroids in anticipation for surgery to stabilize fracture. Neurosurgery was consulted. Dr. Azar. Pt was evaluated by ICU and admitted with concerns of cauda equina. Neurosurgery planned for decompressive laminectomy, fusion, and instrumentation and was performed on 09/14/16. Pt tolerated the procedure without issue. Pt retained bowel and bladder function. Pt remained neurologically stable without any focal deficits. PT eval and treatment was arranged for early mobilization. Pt had mild complaints of back pain, but otherwise did not have any complications from the procedure. Psych was consulted for unusual behavior as per nursing staff. As per nursing staff, pt soiled himself and playing with feces. However, upon further investigation, pt was unable to ambulate in time to use the restroom, and was wiping himself the best he could. Dr. Buenrostro, psych cleared pt as being competent and without any acute psych issues. Pt, on account of not having insurance, did not qualify for [facility] however, his mother, a nurse, agreed to take care of him with outpt rehab. Pt is to continue with a decadron taper. Pt to continue physical therapy outpt. Pt is scheduled for fu with Neurosurgery on 09/28/16. Pt is to have daily dressing changes. Discharge Exam - Head Exam Head Exam: ATRAUMATIC, NORMAL INSPECTION, NORMOCEPHALIC - Eye Exam Eye Exam: EOMI, Normal appearance Pupil Exam: NORMAL ACCOMODATION - ENT Exam ENT Exam: Mucous Membranes Moist - Respiratory Exam Respiratory Exam: Clear to PA & Lateral, NORMAL BREATHING PATTERN, UNREMARKABLE - Cardiovascular Exam Cardiovascular Exam: RRR, +S1, +S2 - GI/Abdominal Exam GI & Abdominal Exam: Normal Bowel Sounds, Soft. absent: Tenderness - Extremities Exam Extremities exam: normal inspection - Back Exam Additional comments: back incision site dressed cdi - Neurological Exam Neurological exam: Alert, CN II-XII Intact, Normal Gait, Oriented x3, Reflexes Normal - Psychiatric Exam Psychiatric exam: Normal Affect, Normal Mood - Skin Skin Exam: Dry, Intact, Normal Color, Warm Discharge Plan - Discharge Medications Prescriptions: RX: Aspirin [Adult Low Dose Aspirin EC] 81 mg PO DAILY #30 RX: Atorvastatin [Lipitor] 20 mg PO DIN #30 RX: Bacitracin Ointment [Bacitracin] 30 gm TOP DAILY #1 RX: Dexamethasone [Decadron] See Taper PO BRKDIN #19 tab RX: Docusate [Colace] 100 mg PO BID #60 cap Insulin Glargine, Recombina [Lantus] 30 unit SC HS 30 Days RX: Insulin Lispro [Humalog Kwikpen U-100] 10 unit SQ ACHS #1 insuln.pen Oxycodone HCl/Acetaminophen [Percocet 10-325 mg Tablet] 1 each PO Q6 PRN #20 tablet PRN Reason: Pain, Severe (8-10) - Follow Up Plan Condition: SERIOUS Disposition: HOME/ ROUTINE Instructions: Anterior Posterior Spinal Fusion (DC), Laminectomy (DC), Cigarette Smoking and Your Health (GEN), Cocaine Abuse (DC), Diabetes Mellitus Type 2 in Adults (DC), Giving an Insulin Injection (DC), Acute Wound Care (DC), Fall Prevention (DC) Additional Instructions: 1. pt is to fu with PMD as per pt's choice within 3-5 days 2. pt is to fu with neurosurgery, currently scheduled for 09/28/16 for staple removal and fu 3. Pt is to follow steroid (decadron) taper as prescribed 4. Pt is to have daily dressing changes, apply bacitracin daily 5. Pt may shower, should cover dressing with plastic 6. [place] [facility] [place] develop any acute symptoms. Referrals: Baldemar Azar MD [Staff Provider] - PCP,LEV [Primary Care Provider] - <Dipika Alvarez MD - Last Filed: 09/21/16 17:21> Provider - Provider Date of Admission: 09/13/16 15:27 Attending physician: Dipika Alvarez MD Primary care physician: LEV PRIMARY CARE PROVIDER Hospital Course - Lab Results Lab Results: Micro Results 09/13/16 16:00 Blood Blood Culture - Final NO GROWTH AFTER 5 DAYS 09/13/16 16:00 Blood Gram Stain - Final TEST NOT PERFORMED 09/13/16 15:30 Blood Blood Culture - Final NO GROWTH AFTER 5 DAYS 09/13/16 15:30 Blood Gram Stain - Final TEST NOT PERFORMED 09/13/16 16:27 Urine Urine Culture - Final No Growth (<1,000 CFU/ML) 09/13/16 19:55 Nose MRSA Culture (Admit) - Final MRSA NOT DETECTED Most Recent Lab Values WBC 13.6 10^3/ul (4.5-11.0) H 09/21/16 06:30 RBC 4.14 10^6/uL (3.5-6.1) 09/21/16 06:30 Hgb 12.4 gm/dL (14.0-18.0) L 09/21/16 06:30 Hct 36.3 % (42.0-52.0) L 09/21/16 06:30 MCV 87.7 fL (80.0-105.0) 09/21/16 06:30 MCH 30.0 pg (25.0-35.0) 09/21/16 06:30 MCHC 34.2 g/dl (31.0-37.0) 09/21/16 06:30 RDW 13.7 % (11.5-14.5) 09/21/16 06:30 Plt Count 345 10^3/uL (120.0-450.0) 09/21/16 06:30 MPV 10.0 fl (7.0-11.0) 09/21/16 06:30 Gran % 59.5 % (50.0-68.0) 09/21/16 06:30 Lymph % (Auto) 30.5 % (22.0-35.0) 09/21/16 06:30 [place] % (Auto) 8.9 % (1.0-6.0) H 09/21/16 06:30 Eos % (Auto) 1.0 % (1.5-5.0) L 09/21/16 06:30 Baso % (Auto) 0.1 % (0.0-3.0) 09/21/16 06:30 Gran # 8.07 (1.4-6.5) H 09/21/16 06:30 Lymph # 4.1 (1.2-3.4) H 09/21/16 06:30 [place]ole # 1.2 (0.1-0.6) H 09/21/16 06:30 Eos # 0.1 (0.0-0.7) 09/21/16 06:30 Baso # 0.02 K/mm3 (0.0-2.0) 09/21/16 06:30 ESR 18 mm/hr (0.0-15.0) H 09/13/16 15:30 PT 12.4 Seconds (9.9-11.8) H 09/14/16 08:00 INR 1.15 (0.93-1.08) H 09/14/16 08:00 APTT 27.6 Seconds (23.7-30.8) 09/14/16 08:00 Sodium 137 mmol/L (132-148) 09/21/16 06:30 Potassium 3.9 mmol/L (3.6-5.0) 09/21/16 06:30 Chloride 100 mmol/L (98-107) 09/21/16 06:30 Carbon Dioxide 28 mmol/L (21-33) 09/21/16 06:30 Anion Gap 13 (10-20) 09/21/16 06:30 BUN 14 mg/dL (7-21) 09/21/16 06:30 Creatinine 0.6 mg/dL (0.5-1.4) 09/21/16 06:30 Est GFR ( Amer) > 60 09/21/16 06:30 Est GFR (Non-Af Amer) > 60 09/21/16 06:30 POC Glucose (mg/dL) 235 mg/dL (65-110) H 09/15/16 16:44 Random Glucose 186 mg/dL (70-110) H 09/21/16 06:30 Hemoglobin A1c 6.3 % (4.2-6.5) 09/14/16 11:00 Calcium 9.1 mg/dL (8.4-10.5) 09/21/16 06:30 Phosphorus 3.0 mg/dL (2.5-4.5) 09/14/16 08:00 Magnesium 2.0 mg/dL (1.7-2.2) 09/14/16 08:00 Total Bilirubin 0.7 mg/dL (0.2-1.3) 09/21/16 06:30 AST 32 U/L (15-59) 09/21/16 06:30 ALT 63 U/L (7-56) H 09/21/16 06:30 Alkaline Phosphatase 148 U/L (38-133) H 09/21/16 06:30 Total Creatine Kinase 332 U/L (35-230) H 09/13/16 15:35 CK-MB (CK-2) 10.5 ng/mL (0.0-3.6) H 09/13/16 15:35 CK-MB (CK-2) % 3.2 % (2.5-3.0) H 09/13/16 15:35 C-React Prot High Sens > 15.00 mg/L (1.00-3.00) H 09/13/16 15:20 Total Protein 7.4 g/dL (5.8-8.3) 09/21/16 06:30 Albumin 3.9 g/dL (3.0-4.8) 09/21/16 06:30 Globulin 3.5 gm/dL 09/21/16 06:30 Albumin/Globulin Ratio 1.1 (1.1-1.8) 09/21/16 06:30 Ethanolamine None detected 09/13/16 15:30 Procalcitonin 0.06 NG/ML (0.19-0.49) L 09/15/16 06:30 Urine Color Yellow (YELLOW) 09/13/16 16:27 Urine Appearance Clear (CLEAR) 09/13/16 16:27 Urine pH 7.0 (4.7-8.0) 09/13/16 16:27 Ur Specific [place] 1.015 (1.005-1.035) 09/13/16 16:27 Urine Protein Negative mg/dL (<30 mg/dL) 09/13/16 16:27 Urine Glucose (UA) Negative mg/dL (NEGATIVE) 09/13/16 16:27 Urine Ketones Negative mg/dL (NEGATIVE) 09/13/16 16:27 Urine Blood Negative (NEGATIVE) 09/13/16 16:27 Urine Nitrate Negative (NEGATIVE) 09/13/16 16:27 Urine Bilirubin Negative (NEGATIVE) 09/13/16 16:27 Urine Urobilinogen 1.0 E.U./dL (<1 E.U./dL) H 09/13/16 16:27 Ur Leukocyte Esterase Negative Chuck/uL (NEGATIVE) 09/13/16 16:27 Urine Opiates Screen Positive (NEGATIVE) H 09/13/16 16:27 Urine Methadone Screen Positive (NEGATIVE) H 09/13/16 16:27 Ur Barbiturates Screen Negative (NEGATIVE) 09/13/16 16:27 Ur Phencyclidine Scrn Negative (NEGATIVE) 09/13/16 16:27 Ur Amphetamines Screen Negative (NEGATIVE) 09/13/16 16:27 U Benzodiazepines Scrn Positive (NEGATIVE) H 09/13/16 16:27 U Oth Cocaine Metabols Positive (NEGATIVE) H 09/13/16 16:27 U Cannabinoids Screen Negative (NEGATIVE) 09/13/16 16:27 Toxicology Panel see note 09/13/16 15:30 Methyl Alcohol Level None detected 09/13/16 15:30 Isopropanol None detected 09/13/16 15:30 Acetone Level None detected 09/13/16 15:30 HIV-1 Ab Rapid Screen Non reactive (NON REAC) 09/13/16 16:00 Blood Type A NEGATIVE 09/13/16 11:35 Blood Type Confirm A NEGATIVE 09/13/16 15:09 Antibody Screen Negative 09/13/16 11:35 BBK History Checked No verified bt 09/13/16 11:35 Attending/Attestation - Attestation I have personally seen and examined this patient.: Yes I have fully participated in the care of the patient.: Yes I have reviewed all pertinent clinical information, including history, physical exam and plan: Yes Notes (Text): 09/21/16 17:18 Patient was seen and examined with medical affairs manager .Agreed with resident assessment and plan. 46 year old male with PMH of of IDDM, tobacco use, substance abuse, opioid use who got admitted for evaluation for lower back pain and lower extremity weakness secondary to fall. MRI revealed T12 fracture with compression of the cauda equina. Patient underwent decompression and fusion of T12-L2. .Patient symptoms are improving, he is feeling better, he is alert,a wake and oriented.He could not go [facility] due to insurance issue, his mother is planning to take him with her in [place], and is planning for out patient physical therapy and rehabilitation.This was discussed in detail with her.He will be discharged on tapering dose of steroid and will follow up with PCP and Neuro surgery. Management plan was discussed in detail with patient Education was provided.
[2016-09-21 17:31] VITALS: BP 123/83; PULSE 101; RESP 20; TEMP 98; O2SAT 99
== END 2016-09-21 17:32 | disposition home or self-care (01) | DRG 460 ==
LOC: ED 08:37 → ERH 15:27 → CCU 20:05 → 5RNO 09-15 19:30
PROVIDERS: ADMIT Hospitalist; ATTEND Internal Medicine
PROC: 01N80ZZ Release Thoracic Nerve, Open Approach (ICD-10-PCS; 2016-09-14)
PROC: 07DR3ZZ Extraction of Iliac Bone Marrow, Percutaneous Approach (ICD-10-PCS; 2016-09-14)
PROC: 4A11X4G Monitoring of Peripheral Nervous Electrical Activity, Intraoperative, External Approach (ICD-10-PCS; 2016-09-14)
PROC: 0RGA0A1 (ICD-10-PCS; principal; 2016-09-14 14:00)
DX: S22.082A Unstable burst fracture of T11-T12 vertebra, initial encounter for closed fracture (principal); G83.4 Cauda equina syndrome; E11.9 Type 2 diabetes mellitus without complications; I10 Essential (primary) hypertension; D72.829 Elevated white blood cell count, unspecified; T38.0X5A Adverse effect of glucocorticoids and synthetic analogues, initial encounter; R20.0 Anesthesia of skin; F14.10 Cocaine abuse, uncomplicated; E78.5 Hyperlipidemia, unspecified; F11.90 Opioid use, unspecified, uncomplicated; Z79.4 Long term (current) use of insulin; W10.9XXA Fall (on) (from) unspecified stairs and steps, initial encounter; Y93.9 Activity, unspecified; Y92.008 Other place in unspecified non-institutional (private) residence as the place of occurrence of the external cause; Y99.9 Unspecified external cause status